=== PATIENT | female | born 1980 | race Two or more races ===

== ENCOUNTER 2016-11-27 20:50 | Emergency (ER) | payer OTHER ==
[2016-11-27] MEDS ORDERED: Fluorescein Sodium TOPICAL* 1 MG TEST ONE ×2 (20:57→20:58)
[2016-11-27] MEDS ORDERED: BSS OPTH.SOL* BTL ONE (20:57)
[2016-11-27] MEDS ORDERED: Tetracaine 0.5% OPTH.SOL 15ML* BTL ONE (20:59)
[2016-11-27 21:02] VITALS: BP 145/90
[2016-11-27] MEDS ORDERED: Erythromycin OPTH OINT* APPLIC OINT LEFT EYE ONE (21:32)
--- NOTE | 2016-11-27 21:39 | UC ---
Eye Complaint HPI - HPI Summary HPI Summary: 36 year old female with complaints of left eye pain and foreign body sensation. States she was carrying a glass bottle of orange juice in her groceries and dropped in on the sidewalk outside her home. She went outside to clean it up and something went into her eye. She has used eye drops to flush it and has rubbed it some without relief. vision 20/20 She does not wear glasses or contacts SHE REPORTS A HX OF ANXIETY. SHE HAS A LOT OF HOMEWORK DUE TOMORROW FOR [employer] AND DID NOT HAVE TIME FOR THIS INJURY. SHE STATES SHE IS FEELING VERY ANXIOUS. SHE DENIES ANY THOUGHTS OF HARMING HERSELF OR OTHERS - History of Current Complaint Chief Complaint: UCEye Stated Complaint: POSS GLASS IN EYE Time Seen by Provider: 11/27/16 21:00 Hx Obtained From: Patient Hx Last Menstrual Period: 11/17/16 ?: No Onset/Duration: Sudden Onset, Lasting Hours - 1, Still Present Timing: Constant Severity Initially: Moderate Severity Currently: Moderate Pain Scale Used: 0-10 Numeric - 8/10 upon arrival Character: Foreign Body Sensation Aggravating Factor(s): Light Alleviating Factor(s): Nothing Associated Signs And Symptoms: Positive: Photophobia, Drainage (Clear) - tearing. Negative: Vision Impairment Right, Vision Impairment Left, Swelling Related History: Foreign Body - Risk Factors Penetrating Injury Risk Factor: Negative Globe Rupture Risk Factors: Negative Acute Glaucoma Risk Factors: Negative Optic Artery Occlusion Risk Factors: Negative - Allergies/Home Medications Allergies/Adverse Reactions: Allergies Allergy/AdvReac Type Severity Reaction Status Date / Time Amoxicillin Allergy Unknown Verified 11/27/16 20:55 Reaction Details Clavulanic Acid Allergy Unknown Verified 11/27/16 20:55 [From Augmentin] Reaction Details Shellfish Allergy Allergy Anaphylatic Verified 11/27/16 20:55 Shock Sulfa Antibiotics Allergy Unknown Verified 11/27/16 20:55 Reaction Details Home Medications: Home Medications Gabapentin CAP(*) [Neurontin 100 mg CAP(*)] 1 cap TID 11/27/16 [History Confirmed 11/27/16] Thyroid [[place] Thyroid] 90 mg DAILY 11/27/16 [History Confirmed 11/27/16] PMH/Surg Hx/FS Hx/Imm Hx Previously Healthy: Yes Endocrine History Of: Reports: Diabetes - prediabetes, Thyroid Disease Psychological History Of: Reports: Anxiety, Depression - Surgical History Surgical History: Yes Surgery Procedure, Year, and Place: tonsillectomy, wisdom teeth removal, surgical removal of a glass foreign body from foot - Family History Known Family History: Positive: Other - : liver and renal failure, nonalcoholic cirrhosis, abdominal aneurism, - Social History Alcohol Use: Rare Substance Use Type: None Smoking Status (MU): Light Every Day Tobacco Smoker Amount Used/How Often: 1 cig/day Have You Smoked in the Last Year: Yes Cessation Counseling: Patient Advised to Stop - Immunization History Most Recent Influenza Vaccination: None Most Recent Tetanus Shot: Unk Most Recent Pneumonia Vaccination: None Review of Systems Constitutional: Negative Skin: Negative Eyes: Photophobia, Other - foreign body sensation left eye ENT: Negative Respiratory: Negative Cardiovascular: Negative Gastrointestinal: Negative Genitourinary: Negative Motor: Negative Neurovascular: Negative Musculoskeletal: Negative Neurological: Negative Psychological: Anxious - she reports she is having lots of anxiety. hx of anxiety. she has a lot of homework for [employer] tomorrow All Other Systems Reviewed And Are Negative: Yes Physical Exam Triage Information Reviewed: Yes Appearance: Well-Nourished, Pain Distress - holding left eye closed Vital Signs: Initial Vital Signs Temp 97.8 F 11/27/16 20:57 Pulse 83 11/27/16 20:57 Resp 18 11/27/16 20:57 BP 145/90 11/27/16 20:57 Pulse Ox 99 11/27/16 20:57 Vital Signs Reviewed: Yes Eyes: Positive: Conjunctiva Clear, Discharge - clear tears, Other: - PERRLA, GOOD OCULAR MOVEMENTS. NO OBVIOUS FOREIGN BODY NOTED ENT Exam: Normal ENT: Positive: Hearing grossly normal. Negative: Nasal congestion Respiratory: Positive: Lungs clear, Normal breath sounds Cardiovascular: Positive: RRR, No Murmur Musculoskeletal: Positive: Strength Intact, ROM Intact Neurological: Positive: Alert, Muscle Tone Normal Psychological: Positive: Age Appropriate Behavior - PLEASANT AND COOPERATIVE Skin: Negative: rashes, breakdown Eye Complaint Course/Dx - Course Course Of Treatment: PROPARICAINE 2 DROPS TO LEFT EYE = COMPLETE RELIEF OF PAIN. fluorescence STAIN TO LEFT EYE = 2 SMALL CORNEAL ABRASION AT 3 O'CLOCK. NO FOREIGN BODY NOTED. NORMAL SALINE FLUSH - Differential Dx/Diagnosis Differential Diagnosis/HQI/PQRI: Corneal Abrasion, Foreign Body Provider Diagnoses: CORNEAL ABRASION LEFT EYE. ANXIETY Discharge - Discharge Plan Condition: Stable Disposition: HOME Prescriptions: Erythromycin OPHTH.OINT* [Ilotycin OPHTH.OINT*] 1 applic LEFT EYE Q4H #1 tube Patient Education Materials: Corneal Abrasion (ED) Referrals: Fernando Dowling MD [Primary Care Provider] - Angelo Aj MD [Medical Doctor] - 1 Day (IF YOU ARE NOT FEELING MUCH BETTER TOMRORROW CALL FOR AN APPOINTMENT)
== END 2016-11-27 22:00 | disposition home or self-care (01) ==
LOC: UCEAST 20:50
DX: S05.02XA Injury of conjunctiva and corneal abrasion without foreign body, left eye, initial encounter (principal); X58.XXXA Exposure to other specified factors, initial encounter; Y93.89 Activity, other specified; Y92.89 Other specified places as the place of occurrence of the external cause; F41.9 Anxiety disorder, unspecified; Z55.1 Schooling unavailable and unattainable; Z88.2 Allergy status to sulfonamides; R73.03 Prediabetes; E07.9 Disorder of thyroid, unspecified; F17.210 Nicotine dependence, cigarettes, uncomplicated
CPT/HCPCS: 99213; A9270-GY; G0463

== ENCOUNTER 2018-01-23 18:33 | Emergency (ER) | payer OTHER ==
[2018-01-23 19:07] VITALS: BP 120/72
--- NOTE | 2018-01-23 19:19 | UC ---
Respiratory Complaint HPI - HPI Summary HPI Summary: 37 yo female with nasal d/c /facial pressure and post nasal drip x days no cough up yellow phlegm no fever chills upper teeth and gums hurt 19 wks - History of Current Complaint Chief Complaint: UCRespiratory Stated Complaint: COLD,ST,COUGH,19 WEEKS PREG Time Seen by Provider: 01/23/18 19:11 Hx Obtained From: Patient Hx Last Menstrual Period: 11/17/16 Onset/Duration: Gradual Onset, Lasting Days Timing: Constant Severity Initially: Mild Severity Currently: Moderate Pain Intensity: 3 Pain Scale Used: 0-10 Numeric Character: Cough: Productive Aggravating Factors: Nothing Alleviating Factors: Nothing Associated Signs And Symptoms: Positive: Chills, Nasal Congestion, Sinus Discomfort - Allergies/Home Medications Allergies/Adverse Reactions: Allergies Allergy/AdvReac Type Severity Reaction Status Date / Time amoxicillin Allergy Severe Hives Verified 01/23/18 19:10 clavulanic acid Allergy Severe Hives Verified 01/23/18 19:10 [From Augmentin] shellfish derived Allergy Severe anaphylaxis Verified 01/23/18 19:10 Sulfa (Sulfonamide Allergy Severe Hives, Verified 01/23/18 19:10 Antibiotics) difficulty breathing PMH/Surg Hx/FS Hx/Imm Hx Previously Healthy: Yes - Surgical History Surgical History: Yes Surgery Procedure, Year, and Place: tonsillectomy, wisdom teeth removal, surgical removal of a glass foreign body from foot - Family History Known Family History: Positive: Other - : liver and renal failure, nonalcoholic cirrhosis, abdominal aneurism, - Social History Alcohol Use: Rare Substance Use Type: None Smoking Status (MU): Light Every Day Tobacco Smoker Amount Used/How Often: 1 cig/day Have You Smoked in the Last Year: Yes - Immunization History Most Recent Influenza Vaccination: None Most Recent Tetanus Shot: Unk Most Recent Pneumonia Vaccination: None Review of Systems Constitutional: Chills, Fatigue Skin: Negative Eyes: Negative ENT: Dental Pain, Nasal Discharge, Sinus Congestion, Sinus Pain/Tenderness Respiratory: Negative Cardiovascular: Negative Gastrointestinal: Negative Genitourinary: Negative Motor: Negative Neurovascular: Negative Musculoskeletal: Negative Neurological: Negative Psychological: Negative Is Patient Immunocompromised?: No All Other Systems Reviewed And Are Negative: Yes Physical Exam Triage Information Reviewed: Yes Appearance: Well-Appearing, No Pain Distress, Well-Nourished Vital Signs: Initial Vital Signs Temp 96.8 F 01/23/18 19:02 Pulse 85 01/23/18 19:02 Resp 16 01/23/18 19:02 BP 120/72 01/23/18 19:02 Pulse Ox 100 01/23/18 19:02 Eyes: Positive: Conjunctiva Clear ENT: Positive: Nasal congestion, Nasal drainage, TMs normal, Sinus tenderness, Uvula midline. Negative: Tonsillar swelling, Tonsillar exudate, Muffled voice Neck: Positive: Supple, Nontender, No Lymphadenopathy Respiratory Exam: Normal Respiratory: Positive: Lungs clear, Normal breath sounds, No respiratory distress, No accessory muscle use Cardiovascular: Positive: RRR, No Murmur Abdomen Description: Positive: Nontender, No Organomegaly Musculoskeletal: Positive: ROM Intact, No Edema Neurological: Positive: Alert Psychological Exam: Normal Skin Exam: Normal UC Diagnostic Evaluation - Laboratory O2 Sat by Pulse Oximetry: 100 - normal/not hypoxic Respiratory Course/Dx - Differential Dx/Diagnosis Provider Diagnoses: acute sinusitis Discharge - Sign-Out/Discharge Documenting (check all that apply): Discharge/Admit/Transfer - Discharge Plan Condition: Stable Disposition: HOME Prescriptions: Azithromycin TAB* [Zithromax TAB*] 250 mg PO DAILY #6 tab Patient Education Materials: Sinusitis (ED) Referrals: Fernando Dowling MD [Primary Care Provider] - If Needed Additional Instructions: warm facial compresses saline nasal spray recheck for new or worsening symptoms - Billing Disposition and Condition Condition: STABLE Disposition: HOME
== END 2018-01-23 19:36 | disposition home or self-care (01) ==
LOC: UCEAST 18:33
DX: O26.892 Other specified pregnancy related conditions, second trimester (principal); J01.90 Acute sinusitis, unspecified; Z3A.19 19 weeks gestation of pregnancy; Z88.1 Allergy status to other antibiotic agents; Z88.0 Allergy status to penicillin; Z88.2 Allergy status to sulfonamides; F17.210 Nicotine dependence, cigarettes, uncomplicated
CPT/HCPCS: 99212; G0463

== ENCOUNTER 2019-06-22 08:22 | Emergency (ER) | payer OTHER ==
--- OUTSIDE RECORDS SUMMARY | 2019-06-22 08:28 | XMS REPORT | Continuity of Care Document ---
:[address] [facility] Services Address [address] [place] [address] Care Team Providers Name Role Phone Joceline Valdovinos MD Unavailable Unavailable Maryuri Rao Unavailable Unavailable Allergies, Adverse Reactions, Alerts Substance Reaction Status No information Medications Medication Instructions Dosage Effective Dates Status Comments (start - stop) prednisone 10 mg take 1 tablet by oral 10 MG - Active tablet route 2 times every day every day Problems Condition Effective Dates (start - stop) Clinical Status Comments No information Procedures Procedure Date OFFICE/OUTPATIENT VISIT, EST SPECIMEN HANDLING ROUTINE VENIPUNCTURE Results Test Name Date and Time Measure Units Reference Range Abnormal Flag Status Comments Panel Description: COMPREHENSIVE METABOLIC PANEL Final GLUCOSE 103 mg/dL 65-99 H Final 11:18:00 Fasting reference interval For someone without known diabetes, a glucose valuebetween 100 and 125 mg/dL is consistent withprediabetes and should be confirmed with afollow-up test.

UREA NITROGEN 9 mg/dL 7-25 N Final (BUN) 11:18:00 CREATININE 0.77 mg/dL 0.50-1.1 N Final 11:18:00 0 eGFR NON-AFR. 98 mL/min/1 > OR = N Final TUVALUAN 11:18:00 .73m2 60 eGFR 114 mL/min/1 > OR = N Final TUVALUAN 11:18:00 .73m2 60 BUN/CREATININE NOT (calc) 6-22 Final RATIO 11:18:00 APPLICABLE SODIUM 137 mmol/L 135-146 N Final 11:18:00 POTASSIUM 4.0 mmol/L 3.5-5.3 N Final 11:18:00 CHLORIDE 105 mmol/L 98-110 N Final 11:18:00 CARBON DIOXIDE 24 mmol/L 20-32 N Final 11:18:00 CALCIUM 9.5 mg/dL 8.6-10.2 N Final 11:18:00 PROTEIN, TOTAL 7.1 g/dL 6.1-8.1 N Final 11:18:00 ALBUMIN 4.4 g/dL 3.6-5.1 N Final 11:18:00 GLOBULIN 2.7 g/dL 1.9-3.7 N Final 11:18:00 (calc) ALBUMIN/GLOBULI 1.6 (calc) 1.0-2.5 N Final N RATIO 11:18:00 BILIRUBIN, 0.5 mg/dL 0.2-1.2 N Final TOTAL 11:18:00 ALKALINE 67 U/L 33-115 N Final PHOSPHATASE 11:18:00 AST 19 U/L 10-30 N Final 11:18:00 ALT 18 U/L 6-29 N Final 11:18:00 Panel Description: ANTINUCLEAR ANTIBODIES TITER AND PATTERN Final KAYODE PATTERN SPECKLED A Final Speckled pattern is 11:18:00 associated with mixed connectivetissue disease (MCTD), systemic lupus erythematosus(SLE), Sjogren's syndrome, dermatomyositis, andsystemic sclerosis/polymyositis overlap.

KAYODE TITER 1:320 titer H Final <content 11:18:00 ID='[id number]' xmlns='[email or web address]'> Reference Range <1:40 Negative 1:40-1:80 Low Antibody Level >1:80 Elevated Antibody Level

</content> Panel Description: TIER 1 Final DNA (DS) <1 IU/mL N Final <content ANTIBODY 11:18:00 ID='[id number]' xmlns='[email or web address]'> IU/mL Interpretation < or = 4 Negative 5-9 Indeterminate > or = 10 Positive

</content> SM ANTIBODY <1.0 AI <1.0 N Final 11:18:00 NEG NEG SM/FISH CULTURIST <1.0 AI <1.0 N Final ANTIBODY 11:18:00 NEG NEG FISH CULTURIST ANTIBODY <1.0 AI <1.0 N Final 11:18:00 NEG NEG CHROMATIN <1.0 AI <1.0 N Final (NUCLEOSOMAL) 11:18:00 NEG NEG ANTIBODY Panel Description: TIER 2 Final SJOGREN'S ANTIBODY (SS-A) 11:18:00 <1.0 NEG AI <1.0 NEG N Final SJOGREN'S ANTIBODY (SS-B) 11:18:00 <1.0 NEG AI <1.0 NEG N Final SCL-70 ANTIBODY 11:18:00 <1.0 NEG AI <1.0 NEG N Final JOHANNA-1 ANTIBODY 11:18:00 <1.0 NEG AI <1.0 NEG N Final Panel Description: TIER 3 Final CENTROMERE B <1.0 NEG AI <1.0 NEG N Final ANTIBODY 11:18:00 RIBOSOMAL P <1.0 NEG AI <1.0 NEG N Final [facility] does not ANTIBODY 11:18:00 rule out autoimmune diseasecharacterized by other autoantibody specificities suchas rheumatoid arthritis, autoimmune hepatitis, primarybiliary cholangitis, autoimmune thyroiditis, [place]'sdisease, pernicious anemia, autoimmune neuropathies,vasculitis, celiac disease and bullous disease.Please contact your local [facility] laboratoryif you are interested in additional testing.

Panel Description: INTERPRETATION Final INTERPRETATION 11:18:00 Final All three negative tiers indicate the absence of detectable antibodies to component analytes consistingof double stranded DNA (dsDNA), chromatin, ribonucleoprotein (FISH CULTURIST), Encinas/FISH CULTURIST (Sm/FISH CULTURIST), Encinas (Sm), SS-A, SS-B, Johanna-1, Scl-70, centromere B andribosomal P. A negative result should be interpretedin the context of the clinical and laboratory findings.

Panel Description: TSH W/REFLEX TO FT4 Final TSH W/REFLEX TO 11:18:00 1.55 mIU/L N Final Reference Range FT4 > or = 20 Years 0.40-4.50 Ranges First trimester 0.26-2.66 Second trimester 0.55-2.73 Third trimester 0.43-2.91

Panel Description: SED RATE BY MODIFIED WESTERGREN Final SED RATE BY MODIFIED WESTERGREN 11:18:00 6 mm/h < OR = 20 N Final Panel Description: URINALYSIS, COMPLETE Final COLOR 11:18:00 DARK YELLOW YELLOW N Final APPEARANCE 11:18:00 CLEAR CLEAR N Final SPECIFIC GRAVITY 11:18:00 1.025 1.001-1.035 N Final PH 11:18:00 6.0 5.0-8.0 N Final GLUCOSE 11:18:00 NEGATIVE NEGATIVE N Final BILIRUBIN 11:18:00 NEGATIVE NEGATIVE N Final KETONES 11:18:00 NEGATIVE NEGATIVE N Final OCCULT BLOOD 11:18:00 NEGATIVE NEGATIVE N Final PROTEIN 11:18:00 NEGATIVE NEGATIVE N Final NITRITE 11:18:00 NEGATIVE NEGATIVE N Final LEUKOCYTE ESTERASE 11:18:00 NEGATIVE NEGATIVE N Final WBC 11:18:00 NONE SEEN /HPF < OR = 5 N Final RBC 11:18:00 0-2 /HPF < OR = 2 N Final SQUAMOUS EPITHELIAL CELLS 11:18:00 0-5 /HPF < OR = 5 Final BACTERIA 11:18:00 NONE SEEN /HPF NONE SEEN N Final HYALINE CAST 11:18:00 NONE SEEN /LPF NONE SEEN N Final Panel Description: CBC (INCLUDES DIFF/PLT) Final WHITE BLOOD CELL COUNT 11:18:00 11.4 Thousand/uL 3.8-10.8 H Final RED BLOOD CELL COUNT 11:18:00 5.03 Million/uL 3.80-5.10 N Final HEMOGLOBIN 11:18:00 13.7 g/dL 11.7-15.5 N Final HEMATOCRIT 11:18:00 41.9 % 35.0-45.0 N Final MCV 11:18:00 83.3 fL 80.0-100.0 N Final MCH 11:18:00 27.2 pg 27.0-33.0 N Final MCHC 11:18:00 32.7 g/dL 32.0-36.0 N Final RDW 11:18:00 14.5 % 11.0-15.0 N Final PLATELET COUNT 11:18:00 393 Thousand/uL 140-400 N Final MPV 11:18:00 9.6 fL 7.5-12.5 N Final ABSOLUTE NEUTROPHILS 11:18:00 6601 cells/uL 3154-6946 N Final ABSOLUTE LYMPHOCYTES 11:18:00 2998 cells/uL 850-3900 N Final ABSOLUTE MONOCYTES 11:18:00 638 cells/uL 200-950 N Final ABSOLUTE EOSINOPHILS 11:18:00 1060 cells/uL 15-500 H Final ABSOLUTE BASOPHILS 11:18:00 103 cells/uL 0-200 N Final NEUTROPHILS 11:18:00 57.9 % 38-80 N Final LYMPHOCYTES 11:18:00 26.3 % 15-49 N Final MONOCYTES 11:18:00 5.6 % 0-13 N Final EOSINOPHILS 11:18:00 9.3 % 0-8 H Final BASOPHILS 11:18:00 0.9 % 0-2 N Final Panel Description: DNA (DS) ANTIBODY Final DNA (DS) <1 IU/mL N Final <content ANTIBODY 11:18:00 ID='[id number]' xmlns='[email or web address]'> IU/mL Interpretation < or = 4 Negative 5-9 Indeterminate > or = 10 Positive

</content> Panel Description: C-REACTIVE PROTEIN Final C-REACTIVE PROTEIN 11:18:00 9.6 mg/L <8.0 H Final Panel Description: SM AND SM/FISH CULTURIST ANTIBODIES Final SM ANTIBODY 11:18:00 <1.0 NEG AI <1.0 NEG N Final SM/FISH CULTURIST ANTIBODY 11:18:00 <1.0 NEG AI <1.0 NEG N Final Panel Description: SJOGREN'S ANTIBODIES (SS-A,SS-B) Final SJOGREN'S ANTIBODY (SS-A) 11:18:00 <1.0 NEG AI <1.0 NEG N Final SJOGREN'S ANTIBODY (SS-B) 11:18:00 <1.0 NEG AI <1.0 NEG N Final Panel Description: KAYODE SCR,IFA W/REFL TITER/ PATTERN/MPX AB CASCADE Final KAYODE POSITIVE NEGATIVE A Final KAYODE IFA is a first line screen for detecting SCREEN, 11:18:00 thepresence of up to approximately 150 IFA autoantibodies invarious autoimmune diseases. A positive KAYODE IFA resultis suggestive of autoimmune disease and reflexes to titer, pattern and the 3 tiered Multiplex 11 AntibodyCascade. Testing in [facility] stops at the firstpositive result, and does not preclude additionalpositive results. Further laboratory testing may beconsidered if clinically indicated. Visit Physician FAQs for interpretation of allantibodies in the [facility], prevalence, and associationwith diseases at [email or web address]

Advance Directives Directive Yes / No Effective Date File Name No information Encounters Encounter Practice Location Reason(s) Diagnoses Date Provider Providers Description For Visit Copied on Encounter OFFICE/OUTPAT [place] Abnormal SLE (systemic [employer] IENT VISIT, [facility] Lab Study lupus [facility]. [address] Provider: [facility] (chief erythematosus [address] [employer], complaint) related Jalen Myrick, [address]) [place], [address] [id number], [place], tel:[phone] Yamilet Myrick, [address], [place], [place], [id number]. [id number], tel:[phone] Family History Family Member Diagnosis Age At Onset Mother ovarian cyst Maternal grandmother Hypothyroidism Maternal aunts Hypothyroidism Immunizations Vaccine Date Status Comments No information Payers Payer name Insurance type Covered libertarian ID Authorization(s) Alexa [facility] [id number] Medicaid [place] [id number] Social History Type Description Quantity Date Captured Comments Alcohol Use Details No Caffeine Use Details coffee 3 cups per day Tobacco Use Status Ex-cigarette smoker Smoking Status Former smoker Smoking Tobacco Use Cigarette: Age Started: 22, Age Stopped: 38, Years Used 17 Cigarette: No Details Available Details Sex Female Vital Signs Date / Height Weight BMI Pulse Blood Temperature Respiratory Body Head BMI Pulse Inhaled Time: Rate Pressure Rate Surface Circumference percentile Ox Ox Area 69.50 224.00 32.6 88 129/88 98.20 F 18 /min 2.23 -2019 in lbs 0 /min mm[Hg] meter(2) 9:45 kg/m AM eter (2) Chief Complaint And Reason For Visit Most recent encounter only, dated '04/30/2019 09:40'. Abnormal Lab Study (chief complaint). Description: PATIENT IS HERE FOR HER INITIAL RHEUMATOLOGICAL CONSULTATION SHE HAS A POSITIVE KAYODE AT A TITRE OF 1: 320.SHE IS ALSO C/O SWELLING AND STIFFINESS OF HER HANDS .SHE HAS FATIGUE .SHE HAS A H/O FIBROMYALGIA . ALSO WAS DIAGNOSED WITH PTSD AND COGNITIVE AMNESIA FROM THAT SHE DENIES MUCOSAL ULCERS, NO RAYNAUDS , NO PLEURITIC CHEST PAIN SHE C/O FATIGUE Reason For Referral Reason For Referral No information Plan Of Treatment Date Type Action Status No information History Of Present Illness Encounter Date Complaint History Of Present Illness Abnormal Lab Study PATIENT IS HERE FOR HER INITIAL RHEUMATOLOGICAL CONSULTATION SHE HAS A POSITIVE KAYODE AT A TITRE OF 1: 320.SHE IS ALSO C/O SWELLING AND STIFFINESS OF HER HANDS .SHE HAS FATIGUE .SHE HAS A H/O FIBROMYALGIA . ALSO WAS DIAGNOSED WITH PTSD AND COGNITIVE AMNESIA FROM THAT SHE DENIES MUCOSAL ULCERS, NO RAYNAUDS , NO PLEURITIC CHEST PAIN SHE C/O FATIGUE Functional Status Date Functional Assessment No information Medications Administered Medication Instructions Dosage Effective Dates (start - stop) Status Comments No information Instructions Date Instruction Additional Information WILL DO THE FULL IMMUNOLOGICAL BLOOD Related to SLE (systemic lupus WORK WILL CHALLENGE HER WITH A LOW erythematosus related syndrome) DOSE OF PREDNISONE WILL HAVE HER F/U IN 2-3 WEEKS Assessments Type Assessment Date assessment SLE (systemic lupus erythematosus related syndrome) impression SHE CLINICALLY SEEMS TO HAVE A MILD FORM OF SLE Goals Health Concern Goal Type Priority Status Date No information Medical Equipment Description Device [place] Device Identifier Effective Dates (start - stop ) Status No information Mental Status Date Cognitive Assessment Orientation - Oriented to time, place, person, situation. Health Concerns Observation Date No information Concern Status Date No information
--- OUTSIDE RECORDS SUMMARY | 2019-06-22 08:28 | XMS REPORT | Continuity of Care Document ---
:[address] [facility] Address [address] [place] [address] Care Team Providers Name Role Phone Fernando Dowling MD Unavailable Unavailable Allergies, Adverse Reactions, Alerts Substance Reaction Status No information Medications Medication Instructions Dosage Effective Dates Status Comments (start - stop) Xanax 0.25 mg take 1 tablet by 0.25 MG - No Longer MDD of 1 tab. tablet oral route every Active day as needed Dyer 5 mg-325 mg take 1 tablet by - No Longer MDD of 2 tabs. tablet oral route every Active 12 hours as needed for pain for fjbromyalgia as needed Problems Condition Effective Dates (start - stop) Clinical Status Comments No information Procedures Procedure Date No information Results Test Name Date and Time Measure Units Reference Range Abnormal Flag Status Comments No information Advance Directives Directive Yes / No Effective Date File Name No information Encounters Encounter Practice Location Reason(s) Diagnoses Date Provider Providers Description For Visit Copied on Encounter Yamilet [place] [facility] -[address] Fernando. [place] [address] Services, [facility] [address] Yamilet [address], [place], [address], . [place], tel:[phone] Yamilet, [address] [place], [id number], Family History Family Member Diagnosis Age At Onset Mother ovarian cyst Maternal grandmother Hypothyroidism Maternal aunts Hypothyroidism Immunizations Vaccine Date Status Comments No information Payers Payer name Insurance type Covered green party ID Authorization(s) Alexa [facility] [id number] Medicaid MC [id number] Social History Type Description Quantity Date Captured Comments Alcohol Use Details Unknown Caffeine Use Details Unknown Tobacco Use Status Unknown Smoking Status Unknown Sex Female Vital Signs Date / Height Weight BMI Pulse Blood Temperature Respiratory Body Head BMI Pulse Inhaled Time: Rate Pressure Rate Surface Circumference percentile Ox Ox Area No information Chief Complaint And Reason For Visit No information Reason For Referral Reason For Referral No information Plan Of Treatment Date Type Action Status No information History Of Present Illness Encounter Date Complaint History Of Present Illness No information Functional Status Date Functional Assessment No information Medications Administered Medication Instructions Dosage Effective Dates (start - stop) Status Comments No information Instructions Date Instruction Additional Information No information Assessments Type Assessment Date No information Goals Health Concern Goal Type Priority Status Date No information Medical Equipment Description Device [place] Device Identifier Effective Dates (start - stop ) Status No information Mental Status Date Cognitive Assessment No information Health Concerns Observation Date No information Concern Status Date No information
--- OUTSIDE RECORDS SUMMARY | 2019-06-22 08:28 | XMS REPORT | Continuity of Care Document ---
:[address] [facility] Address [address] [facility] [place] [address] Care Team Providers Name Role Phone Fernando Dowling MD Unavailable Unavailable Allergies, Adverse Reactions, Alerts Substance Reaction Status No information Medications Medication Instructions Dosage Effective Dates (start - stop) Status Comments No information Problems Condition Effective Dates (start - stop) Clinical Status Comments No information Procedures Procedure Date No information Results Test Name Date and Time Measure Units Reference Range Abnormal Flag Status Comments No information Advance Directives Directive Yes / No Effective Date File Name No information Encounters Encounter Practice Location Reason(s) Diagnoses Date Provider Providers Description For Visit Copied on Encounter Yamilet Woodard [facility] -[facility] Fernando. [facility] [address] [address] [facility] [place], [address], . Ramez, tel:[phone] Kash[place], [address] [place], [phone], Family History Family Member Diagnosis Age At Onset Mother ovarian cyst Maternal grandmother Hypothyroidism Maternal aunts Hypothyroidism Immunizations Vaccine Date Status Comments No information Payers Payer name Insurance type Covered constitution party ID Authorization(s) [id number] Medicaid MC [id number] Social History Type Description Quantity Date Captured [...] Date No information Medical Equipment Description Device Rosine Device Identifier Effective Dates (start - stop ) Status No information Mental Status Date Cognitive Assessment No information Health Concerns Observation Date No information Concern Status Date No information
--- OUTSIDE RECORDS SUMMARY | 2019-06-22 08:28 | XMS REPORT | Continuity of Care Document ---
:1980 Author Organization [facility] Address [address] [place] [address] Care Team Providers Name Role Phone Arnold Johnson MD Unavailable Unavailable Allergies, Adverse Reactions, Alerts Substance Reaction Status No information Medications Medication Instructions Dosage Effective Dates Status Comments (start - stop) Xanax 0.25 mg take 1 tablet by 0.25 MG - Active MDD of 1 tab. tablet oral route every day as needed [place] 5 mg-325 mg take 1 tablet by - Active MDD of 2 tabs. tablet oral route every 12 hours as needed for pain for [...] For Visit Copied on Encounter Yamilet Woodard [facility] -Anna Barrett. [address] [place] [address], Yamilet Myrick, [address] [place], [id number], [place]. Catcher tel:[phone] R[place], [address] [place], [phone], Family History Family Member Diagnosis Age At Onset Mother ovarian cyst Maternal grandmother Hypothyroidism Maternal aunts Hypothyroidism Immunizations Vaccine Date Status Comments No information Payers Payer name Insurance type Covered libertarian ID Authorization(s) Alexa Rodriguez [id number] Medicaid MC [id number] Social History Type Description Quantity Date Captured Comments Sex Female Vital Signs Date / Height [...] Date No information Medical Equipment Description Device [place] Device Identifier Effective Dates (start - stop ) Status No information Mental Status Date Cognitive Assessment No information Health Concerns Observation Date No information Concern Status Date No information
--- OUTSIDE RECORDS SUMMARY | 2019-06-22 08:29 | XMS REPORT | Continuity of Care Document ---
:1980 Author Organization [facility] Address [address] [facility] [place] [address] Care Team Providers Name Role Phone Fernando [...] For Visit Copied on Encounter Yamilet Woodard [facility] -2018 Fernando. [facility] [facility] [address] [facility] [address], . R[place]z, tel:[phone] Yamilet, [address] [place], [phone], Family History Family Member Diagnosis Age At Onset Mother ovarian cyst Maternal grandmother Hypothyroidism Maternal aunts Hypothyroidism Immunizations Vaccine Date Status Comments No information Payers Payer name Insurance type Covered democrat ID Authorization(s) D Yuliyaaqkeren [id number] Medicaid [id number] Social History Type Description Quantity Date Captured [...] Date No information Medical Equipment Description Device [place] Device Identifier Effective Dates (start - stop ) Status No information Mental Status Date Cognitive Assessment No information Health Concerns Observation Date No information Concern Status Date No information
--- OUTSIDE RECORDS SUMMARY | 2019-06-22 08:29 | XMS REPORT | Continuity of Care Document ---
:1980 Author Organization [facility] Address [address] [place] [address] Care Team Providers Name Role Phone oJceline Valdovinos MD Unavailable Unavailable Allergies, Adverse Reactions, Alerts [...] For Visit Copied on Encounter Yamilet Woodard [facility] -2018 Joceline. [address] [facility] [place] Yamilet, [address] [place], [address], . Catcher tel:[phone] Ramez, [address] [place], [place], [phone], Family History Family Member Diagnosis Age At Onset Mother ovarian cyst Maternal grandmother Hypothyroidism Maternal aunts Hypothyroidism Immunizations Vaccine Date Status Comments No information Payers Payer name Insurance type Covered republican ID Authorization(s) Alexa [facility] [id number] Medicaid MC [id number] Social History Type Description Quantity Date Captured [...] Date No information Medical Equipment Description Device Marquez Device Identifier Effective Dates (start - stop ) Status No information Mental Status Date Cognitive Assessment No information Health Concerns Observation Date No information Concern Status Date No information
--- OUTSIDE RECORDS SUMMARY | 2019-06-22 08:29 | XMS REPORT | Continuity of Care Document ---
:1980 Author Organization [facility] Address [address] [place] [address] Care Team Providers Name Role Phone Fernando [...] For Visit Copied on Encounter Yamilet Woodard [facility] KAYODE -2018 Fernando. [facility] ([employer] [address] Services, r [facility] [address] antibody) Yam[place]t [place], [place], [address], [place]. [place], tel:[phone] Yamilet, [address] [place], [phone], Family History Family Member Diagnosis Age At Onset Mother ovarian cyst Maternal grandmother Hypothyroidism Maternal aunts Hypothyroidism Immunizations Vaccine Date Status Comments No information Payers Payer name Insurance type Covered green party ID Authorization(s) M Aetna CI [id number] [facility] [id number] Medicaid MC [id number] Social History Type Description Quantity Date Captured [...] Information No information Assessments Type Assessment Date assessment Positive KAYODE (antinuclear antibody) Goals Health Concern Goal Type Priority Status Date No information Medical Equipment Description Device [place] Device Identifier Effective Dates (start - stop ) Status No information Mental Status Date Cognitive Assessment No information Health Concerns Observation Date No information Concern Status Date No information
--- OUTSIDE RECORDS SUMMARY | 2019-06-22 08:29 | XMS REPORT | Continuity of Care Document ---
:1980 Author Organization [facility] Address [address] [place] [place] [address] Care Team Providers Name Role Phone Arnold [...] For Visit Copied on Encounter Yamilet Woodard SLE (systemic [facility] lupus 2-201 Arnold. Health Medical erythematosus [address] [facility] Services, related [address] syndrome) [place], [place], Catcher [address], . [place], tel:[phone] Yamilet, [address] [place], [phone], Family History Family Member Diagnosis Age At Onset Mother ovarian cyst Maternal grandmother Hypothyroidism Maternal aunts Hypothyroidism Immunizations Vaccine Date Status Comments No information Payers Payer name Insurance type Covered republican ID Authorization(s) Alexa [facility] [id number] Medicaid MC [id number] Social History Type Description Quantity Date Captured [...] Plan Of Treatment Date Type Action Status Referral Referred To: ordered Dr. Encinas Ordered: Referrals: Purchasing Intern. Dr. Encinas. Evaluate and treat Appointment date/timeframe: 05/19/2019 History Of Present Illness Encounter Date Complaint History Of Present Illness No information Functional Status Date Functional Assessment No information Medications Administered Medication Instructions Dosage Effective Dates (start - stop) Status Comments No information Instructions Date Instruction Additional Information No information Assessments Type Assessment Date assessment SLE (systemic lupus erythematosus related syndrome) Goals Health Concern Goal Type Priority Status Date No information Medical Equipment Description Device [place] Device Identifier Effective Dates (start - stop ) Status No information Mental Status Date Cognitive Assessment No information Health Concerns Observation Date No information Concern Status Date No information
--- OUTSIDE RECORDS SUMMARY | 2019-06-22 08:29 | XMS REPORT | Continuity of Care Document ---
:1980 Author Organization [facility] Address [address] [facility] [place] [address] Care Team Providers Name Role Phone Fernando [...] For Visit Copied on Encounter Yamilet Woodard [facility] -2018 Fernando. [facility] [address] [facility] [address] [facility], . Ramez, tel:[phone] Yamilet, [address] [place], [phone], Family History Family Member Diagnosis Age At Onset Mother ovarian cyst Maternal grandmother Hypothyroidism Maternal aunts Hypothyroidism Immunizations Vaccine Date Status Comments No information Payers Payer name Insurance type Covered green party ID Authorization(s) Alexa [place] CI [id number] [facility] [id number] Medicaid MC [id number] Social History Type Description Quantity Date Captured [...] Date No information Medical Equipment Description Device [place] Device Identifier Effective Dates (start - stop ) Status No information Mental Status Date Cognitive Assessment No information Health Concerns Observation Date No information Concern Status Date No information
--- OUTSIDE RECORDS SUMMARY | 2019-06-22 08:29 | XMS REPORT | Continuity of Care Document ---
:1980 Author Organization [facility] Address [address] [place] [address] Care Team Providers Name Role Phone Fernando Dowling MD Unavailable Unavailable Maryuri Rao Unavailable Unavailable Allergies, Adverse Reactions, Alerts Substance Reaction Status No information Medications Medication Instructions Dosage Effective Dates Status Comments (start - stop) EpiPen 0.3 mg/0.3 mL inject 0.3 milliliter 0.3 MG - Active injection, by intramuscular route auto-injector once as needed for anaphylaxis Problems Condition Effective Dates (start - stop) Clinical Status Comments No information Procedures Procedure Date VISUAL ACUITY SCREEN PREV VISIT, EST, AGE 18-39 OFFICE/OUTPATIENT VISIT, EST Results Test Name Date and Time Measure Units Reference Range Abnormal Flag Status Comments Panel Description: LIPID PANEL, STANDARD Final CHOLESTEROL, TOTAL 170 mg/dL <200 N Final 10:24:00 HDL CHOLESTEROL 59 mg/dL >50 N Final 10:24:00 TRIGLYCERIDES 72 mg/dL <150 N Final 10:24:00 LDL-CHOLESTEROL 95 mg/dL (calc) N Final <content 10:24:00 ID='[email or web address]' xmlns='[email or web address] [email or web address]'>Reference range: <100 Desirable range <100 mg/dL for primary prevention; <70 mg/dL for patients with CHD or diabetic patients with > or = 2 CHD risk factors. LDL-C is now calculated using the Hema-Flanagan calculation, which is a validated novel method providing better accuracy than the Friedewald equation in the estimation of LDL-C. Hema CRAMER et al. BONNIE. 2013;310(44): 8688-7344 (http://education. [employer].c om/faq/RSS253)<br/ >
</content> CHOL/HDLC RATIO 2.9 (calc) <5.0 N Final 10:24:00 NON HDL CHOLESTEROL 111 mg/dL (calc) <130 N Final For patients with 10:24:00 diabetes plus 1 major ASCVD risk factor, treating to a non-HDL-C goal of <100 mg/dL (LDL-C of <70 mg/dL) is considered a therapeutic option.

Panel Description: T4, FREE Final T4, FREE 10:24:00 0.7 ng/dL 0.8-1.8 L Final Panel Description: TSH Final TSH 10:24:00 1.20 mIU/L N Final Reference Range > or = 20 Years 0.40-4.50 Ranges First trimester 0.26-2.66 Second trimester 0.55-2.73 Third trimester 0.43-2.91

Panel Description: COMPREHENSIVE METABOLIC PANEL Final GLUCOSE 94 mg/dL 65-99 N Final 10:24:00 Fasting reference interval

UREA NITROGEN 10 mg/dL 7-25 N Final (BUN) 10:24:00 CREATININE 0.72 mg/dL 0.50-1.10 N Final 10:24:00 eGFR NON-AFR. 106 mL/min/1. > OR = 60 N Final [place]ER 10:24:00 73m2 eGFR 123 mL/min/1. > OR = 60 N Final [place] 10:24:00 73m2 BUN/CREATININE NOT APPLICABLE (calc) 03-15 Final RATIO 10:24:00 SODIUM 140 mmol/L 135-146 N Final 10:24:00 POTASSIUM 4.2 mmol/L 3.5-5.3 N Final 10:24:00 CHLORIDE 107 mmol/L 98-110 N Final 10:24:00 CARBON DIOXIDE 26 mmol/L 20-32 N Final 10:24:00 CALCIUM 9.3 mg/dL 8.6-10.2 N Final 10:24:00 PROTEIN, TOTAL 7.0 g/dL 6.1-8.1 N Final 10:24:00 ALBUMIN 4.4 g/dL 3.6-5.1 N Final 10:24:00 GLOBULIN 2.6 g/dL 1.9-3.7 N Final 10:24:00 (calc) ALBUMIN/GLOBULIN 1.7 (calc) 1.0-2.5 N Final RATIO 10:24:00 BILIRUBIN, TOTAL 0.5 mg/dL 0.2-1.2 N Final 10:24:00 ALKALINE 63 U/L 33-115 N Final PHOSPHATASE 10:24:00 AST 22 U/L 10-30 N Final 10:24:00 ALT 18 U/L 6-29 N Final 10:24:00 Panel Description: SED RATE BY MODIFIED WESTERGREN Final SED RATE BY MODIFIED BRIANERGREN 10:24:00 6 mm/h < OR = 20 N Final Panel Description: CBC (INCLUDES DIFF/PLT) Final WHITE BLOOD CELL COUNT 10:24:00 10.1 Thousand/uL 3.8-10.8 N Final RED BLOOD CELL COUNT 10:24:00 4.89 Million/uL 3.80-5.10 N Final HEMOGLOBIN 10:24:00 13.6 g/dL 11.7-15.5 N Final HEMATOCRIT 10:24:00 40.9 % 35.0-45.0 N Final MCV 10:24:00 83.6 fL 80.0-100.0 N Final MCH 10:24:00 27.8 pg 27.0-33.0 N Final MCHC 10:24:00 33.3 g/dL 32.0-36.0 N Final RDW 10:24:00 14.4 % 11.0-15.0 N Final PLATELET COUNT 10:24:00 386 Thousand/uL 140-400 N Final MPV 10:24:00 9.1 fL 7.5-12.5 N Final ABSOLUTE NEUTROPHILS 10:24:00 6222 cells/uL 9628-3111 N Final ABSOLUTE LYMPHOCYTES 10:24:00 2020 cells/uL 850-3900 N Final ABSOLUTE MONOCYTES 10:24:00 697 cells/uL 200-950 N Final ABSOLUTE EOSINOPHILS 10:24:00 1091 cells/uL 15-500 H Final ABSOLUTE BASOPHILS 10:24:00 71 cells/uL 0-200 N Final NEUTROPHILS 10:24:00 61.6 % 38-80 N Final LYMPHOCYTES 10:24:00 20.0 % 15-49 N Final MONOCYTES 10:24:00 6.9 % 0-13 N Final EOSINOPHILS 10:24:00 10.8 % 0-8 H Final BASOPHILS 10:24:00 0.7 % 0-2 N Final Panel Description: KAYODE SCREEN, IFA, W/REFL TITER AND PATTERN Final KAYODE POSITIVE NEGATIVE A Final KAYODE IFA is a first line screen for detecting SCREEN, 10:24:00 thepresence of up to approximately 150 IFA autoantibodies invarious autoimmune diseases. A positive KAYODE IFA resultis suggestive of autoimmune disease and reflexes totiter and pattern. Further laboratory testing may beconsidered if clinically indicated. Visit Physician FAQs for interpretation of allantibodies in the [place], prevalence, and associationwith diseases at http://education.netFactor.Kairos4/faq/FXB610

Panel Description: ANTINUCLEAR ANTIBODIES TITER AND PATTERN Final KAYODE PATTERN SPECKLED A Final Speckled pattern is 10:24:00 associated with mixed connectivetissue disease (MCTD), systemic lupus erythematosus(SLE), Sjogren's syndrome, dermatomyositis, andsystemic sclerosis/polymyositis overlap.

KAYODE TITER 1:320 titer H Final <content 10:24:00 ID='[id number]' xmlns='[email or web address]'> Reference Range <1:40 Negative 1:40-1:80 Low Antibody Level >1:80 Elevated Antibody Level

</content> Panel Description: RHEUMATOID FACTOR Final RHEUMATOID FACTOR 10:24:00 <14 IU/mL <14 N Final Panel Description: C-REACTIVE PROTEIN Final C-REACTIVE PROTEIN 10:24:00 8.6 mg/L <8.0 H Final Panel Description: CYCLIC CITRULLINATED PEPTIDE (CCP) AB (IGG) Final CYCLIC <16 UNITS N Final <content ID='[id number]' CITRULLINATED 10:24:00 xmlns='[email or web address]'>Reference PEPTIDE (CCP) AB RangeNegative: (IGG) <20Weak Positive: 20-39Moderate Positive: 40-59Strong Positive: >59

</content> Panel Description: URINALYSIS, AUTO, W/O SCOPE Final Bilirubin 09:19:08 NEG mg/DL 0.4-0.8 mg/dL Final Blood 09:19:08 MOD mg/dL 0.015-0.062 mg/dL Final Clarity 09:19:08 CLEAR Final Color 09:19:08 YELLOW Final Glucose 09:19:08 NEG mg/dL 75-125 mg/dL Final Ketones 09:19:08 NEG Final Leukocytes 09:19:08 NEG 5-15 wbc/hpf Final Nitrite 09:19:08 NEG mg/dL 0.06-0.1 mg/dL Final PH 09:19:08 6.0 4.6-8.0 Final Protein 09:19:08 NEG mg/dL 15-13 mg/dL Final Specific [place] 09:19:08 1.025 1.001-1.035 Final Urobilinogen 09:19:08 0.2 mg/dL <1.0 mg/dL Final Advance Directives Directive Yes / No Effective Date File Name Other Directive No 03/04/2018 N/A WARNING:The information contained in this section is historical and is provided for information onlyand does not constitute a legal document or any assurance that the information is still accurate. Please verify the information with the schmidt of the legal document before using it for clinical purposes. Encounters Encounter Practice Location Reason(s) Diagnoses Date Provider Providers Description For Visit Copied on Encounter PREV VISIT, [place] [facility]tr for [employer] EST, AGE Nation Nation exam (chief general adult [address]. Provider: 18-39 Health Medical complaint)C medical exam [address] [facility], hronic w/o abnormal [facility] [place], [address] Conditions findingsFibromy [place], [address] (chief algiaOther [place], [place], Catcher Catcher complaint) specified [address], [place]. [place], hypothyroidismP tel:[phone] [place], [place], [place], olyosteoarthrit [address] [phone]. [place], is, tel:[phone] unspecifiedObes [id number] , [place] ity, unspecifiedOthe r specified depressive episodesPost-tr aumatic stress disorder, chronicAnxiety disorder, unspecifiedNico gail dependence, cigarettes, uncomplicatedFi brocystic breast disease (FCBD) in female, unspecified laterality Family History Family Member Diagnosis Age At Onset Mother ovarian cyst Maternal grandmother Hypothyroidism Maternal aunts Hypothyroidism Immunizations Vaccine Date Status Comments No information Payers Payer name Insurance type Covered republican ID Authorization(s) Alexa Baez [id number] [facility] [id number] Medicaid MC [id number] Social History Type Description Quantity Date Captured Comments Alcohol Use Details No Caffeine Use Details coffee 3 cups per day Tobacco Use Status Cigarette smoker Smoking Status Current some day smoker Smoking Tobacco Use Cigarette: Age Started: 22, Age Stopped: 38, Years Used 17 Cigarette: No Details Available Details Sex Female Vital Signs Date / Height Weight BMI Pulse Blood Temperature Respiratory Body Head BMI Pulse Inhaled Time: Rate Pressure Rate Surface Circumference percentile Ox Ox Area 69.50 225.00 32.7 85 121/77 18 /min -2018 in lbs 5 /min mm[Hg] 9:20 kg/m AM eter (2) Chief Complaint And Reason For Visit Most recent encounter only, dated '04/18/2019 09:00'. preventive exam ( chief complaint)Chronic Conditions (chief complaint). Description: *See Chronic Conditions HPI Reason For Referral Reason For Referral No information Plan Of Treatment Date Type Action Status Goal Tobacco cessation counseling completed Referral Ordered: ordered Provider Relations Coordinator (related to Encntr for general adult medical exam w/o abnormal findings) Referral Ordered: ordered Referrals: Provider Relations Coordinator. Evaluate and treat Referral Ordered: ordered ULTRASOUND BREAST COMPLETE Bilateral Appointment date/timeframe: 04/18/2019 History Of Present Illness Encounter Date Complaint History Of Present Illness Chronic Conditions *See Chronic Conditions HPI preventive exam preventive exam (comments) Pt. is here today with above complaint. She is doing ok and is trying to stay active an eat a balanced diet. She will seeing Dr. Garcia of [facility] for her pap and pelvic exam next week. She does complain of fibrocystic changes in her lower breasts, left worse than right and this area is painful at times. Denies any nipple discharge or any other skin changes. Functional Status Date Functional Assessment No information Medications Administered Medication Instructions Dosage Effective Dates (start - stop) Status Comments No information Instructions Date Instruction Additional Information 1. Check bilateral breast US. 2. Related to Fibrocystic breast disease Start vitamin E 400 IU po qday. (FCBD) in female, unspecified laterality 1. Monitor. 2. She does BH for Related to Post-traumatic stress counseling at times. disorder, chronic 1. Monitor. 2. She wants to consider Related to Other specified depressive starting and wants to think about episodes this. 1. Diet and exercise. 2. Monitor Related to Obesity, unspecified caloric intake. 3. Continue with Adipex 37.5 mg po qday. 1. ROM exercises. 2. As above. Related to Polyosteoarthritis, unspecified 1. Check free T4 and TSH today. 2. Related to Other specified Continue with [place] Thyroid 30 mg 3 hypothyroidism tabs po qday. 1. ROM exercises. 2. Continue with Related to Fibromyalgia [place] 5/325 one tab po q12 hrs prn. 3.Check ESR, CRP, RF, anti CCP and KAYODE today. 4. Monitor. 5. Medication safety agreement updated today. 6. Check urine drug screen. 7. Controlled Substance Information. I advised the patient previously and today regarding treatment with the above controlled substances and/or narcotic. The patient was informed of the benefits, risks and alternatives of the narcotic. The risks discussed include but are not limited to physical and/or psychological dependence, tolerance of the medication, drowsiness, sleepiness, balance/coordination problems, confusion, allergic reaction, or any other abnormal symptoms. The patient was advised and agreed to use the medication only as prescribed and not to drive or operate heavy equipment or machinery. The patient understood and consented to both narcotic/opiate regimen and agreed to sign and comply with all of the [facility] terms of medication safety treatment and agreement. Pt. has received a copy of the Medication Safety agreement. 1. SBEs and skin cancer screening Related to Encntr for general adult and prevention discussed. (5 min. - medical exam w/o abnormal findings good). 2. Domestic violence, alcohol, depression and tobacco screening done today.3. Health Care Proxy on file from 03/04/18 and unchanged.4. Diet and exercise. 5. Check CBC, comp. panel, lipids, free T4 and TSH fasting today. 6. Refer for an eye exam. Assessments Type Assessment Date assessment Encntr for general adult medical exam w/o abnormal findings assessment Fibromyalgia assessment Other specified hypothyroidism assessment Polyosteoarthritis, unspecified assessment Obesity, unspecified assessment Other specified depressive episodes assessment Post-traumatic stress disorder, chronic assessment Anxiety disorder, unspecified assessment Nicotine dependence, cigarettes, uncomplicated assessment Fibrocystic breast disease (FCBD) in female, unspecified 2018 laterality Goals Health Concern Goal Type Priority Status Date No information Medical Equipment Description Device [place] Device Identifier Effective Dates (start - stop ) Status No information Mental Status Date Cognitive Assessment Orientation - Oriented to time, place, person, situation. Health Concerns Observation Date No information Concern Status Date No information
--- OUTSIDE RECORDS SUMMARY | 2019-06-22 08:29 | XMS REPORT | Continuity of Care Document ---
:[address] [facility] Services Address [address] [place] [address] Care Team Providers Name Role Phone Fernando [...] For Visit Copied on Encounter Yamilet Woodard [facility] -2018 Fernando. [facility] [facility] [address], . Ramez, tel:[phone] Yam[place]t, 8700 [place], [phone], Family History Family Member Diagnosis Age At Onset Mother ovarian cyst Maternal grandmother Hypothyroidism Maternal aunts Hypothyroidism Immunizations Vaccine Date Status Comments No information Payers Payer name Insurance type Covered alliance party ID Authorization(s) [facility] [id number] Medicaid MC [id number] Social History Type Description Quantity Date Captured [...] Date No information Medical Equipment Description Device [place] Device Identifier Effective Dates (start - stop ) Status No information Mental Status Date Cognitive Assessment No information Health Concerns Observation Date No information Concern Status Date No information
--- OUTSIDE RECORDS SUMMARY | 2019-06-22 08:29 | XMS REPORT | Continuity of Care Document ---
:1980 Author Organization [facility] Services Address [address] [place] [address] Care Team Providers Name Role Phone Fernando [...] Status Comments No information Procedures Procedure Date PREV VISIT, EST, AGE 18-39 VISUAL ACUITY SCREEN BRIEF EMOTIONAL/BEHAV ASSMT BRIEF EMOTIONAL/BEHAV ASSMT ROUTINE VENIPUNCTURE URINALYSIS, AUTO, W/O SCOPE Results Test Name Date and Time Measure [...] factors. LDL-C is now calculated using the Nikita calculation, which is a validated novel method providing better accuracy than the Friedewald equation in the estimation of LDL-C. Hema CRAMER et al. BONNIE. 2013;310(52): 9512-6861 (http://education. [facility] Center[facility]. om/faq/WSY422)<br/ >
</content> CHOL/HDLC RATIO 2.9 (calc) <5.0 [...] mL/min/1. > OR = 60 N Final NICARAGUAN 10:24:00 73m2 eGFR 123 mL/min/1. > OR = 60 N Final NICARAGUAN 10:24:00 73m2 BUN/CREATININE NOT APPLICABLE (calc) 6-22 Final RATIO 10:24:00 SODIUM 140 mmol/L 135-146 [...] 10:24:00 Panel Description: SED RATE BY MODIFIED LAUROREN Final SED RATE BY MODIFIED BRITANY 10:24:00 6 mm/h < OR = 20 [...] N Final ABSOLUTE NEUTROPHILS 10:24:00 6222 cells/uL 7344-8170 N Final ABSOLUTE LYMPHOCYTES 10:24:00 2020 cells/uL [...] FAQs for interpretation of allantibodies in the [place], prevalence, and associationwith diseases at http://education.[employer]/faq/XXP006

Panel Description: ANTINUCLEAR ANTIBODIES TITER AND PATTERN [...] 09:19:08 NEG mg/dL 15-13 mg/dL Final Specific [place] 09:19:08 1.025 1.001-1.035 Final Urobilinogen 09:19:08 0.2 [...] For Visit Copied on Encounter PREV VISIT, [place] En[facility]tr for [employer] EST, AGE Nation Nation exam (chief general adult 6[address] R[address]ra. Provider: 18-39 Health Medical complaint)C medical exam 2056 [facility], hronic w/o abnormal DreamCatcher OHerien, 2056 Conditions findingsFibromy [place], 2056 [address] Dream (chief algiaOther [place], Catcher Catcher complaint) specified [address], [place]. [place], [place], hypothyroidismP tel:[phone] [place], [place], olyosteoarthrit 8700 [id number]. [place], is, tel:[phone] unspecifiedObes [id number] , [place] ity, unspecifiedOthe r specified depressive episodesPost-tr aumatic stress disorder, chronicAnxiety disorder, unspecifiedNico gail dependence, cigarettes, uncomplicatedFi brocystic breast disease (FCBD) in female, unspecified laterality Family History Family Member Diagnosis Age At Onset Mother ovarian cyst Maternal grandmother Hypothyroidism Maternal aunts Hypothyroidism Immunizations Vaccine Date Status Comments No information Payers Payer name Insurance type Covered libertarian ID Authorization(s) Alexa Baez [id number] [facility] [id number] Medicaid MC [id number] Social History Type Description Quantity Date Captured [...] 69.50 225.00 32.7 85 121/77 18 /min 99 -2018 in lbs 5 /min mm[Hg] 9:20 kg/m AM eter (2) Chief Complaint And Reason For Visit Most recent encounter only, dated '04/18/2019 09:00'. preventive exam ( chief complaint)Chronic Conditions (chief complaint). Description: *See Chronic Conditions HPI Reason For Referral Reason For Referral No information Plan Of Treatment Date Type Action Status Goal Tobacco cessation counseling completed Referral Ordered: ordered Career Professional (related to Encntr for general adult medical exam w/o abnormal findings) Referral Ordered: ordered Referrals: [facility] Professional. Evaluate and treat Referral Ordered: ordered ULTRASOUND BREAST COMPLETE Bilateral Appointment date/timeframe: 04/18/2019 History Of Present Illness Encounter Date Complaint History Of Present Illness Chronic Conditions *See Chronic Conditions HPI preventive exam (comments) Pt. is here today with above complaint. She is doing ok and is trying to stay active an eat a balanced diet. She will seeing Dr. Garcia of [facility] for her pap and pelvic exam next week. She does complain of fibrocystic changes in her lower breasts, left worse than right and this area is painful at times. Denies any nipple discharge or any other skin changes. preventive exam Functional Status Date Functional Assessment No information [...] 2. Related to Other specified Continue with Niotaze Thyroid 30 mg 3 hypothyroidism tabs po qday. 1. ROM exercises. 2. Continue with Related to Fibromyalgia [place] 5/325 one tab po q12 hrs prn. [...] sign and comply with all of the [facility] terms of medication safety treatment and agreement. [...] Date No information Medical Equipment Description Device [place] Device Identifier Effective Dates (start - stop ) Status No information Mental Status Date Cognitive Assessment Orientation - Oriented to time, place, person, situation. Health Concerns Observation Date No information Concern Status Date No information
--- OUTSIDE RECORDS SUMMARY | 2019-06-22 08:29 | XMS REPORT | Continuity of Care Document ---
:1980 Author Organization [facility] Services Address [address] [place] [address] Care Team Providers Name Role Phone Fernando Dowling MD Unavailable Unavailable Allergies, Adverse Reactions, Alerts Substance Reaction Status No information Medications Medication Instructions Dosage Effective Dates Status Comments (start - stop) Xanax 0.25 mg take 1 tablet by 0.25 MG - Active MDD of 1 tab. tablet oral route every day as needed A[place]ka 5 mg-325 mg take 1 tablet by - Active MDD of 2 tabs. tablet oral route every 12 hours as needed for pain for fjbromyalgia as needed Adipex-P 37.5 mg take 1 tablet by 37.5 MG - Active MDD of 1 tab. tablet oral route every day before breakfast Problems Condition Effective Dates (start - stop) Clinical Status Comments No information Procedures Procedure Date No information Results Test Name Date and Time Measure Units Reference Range Abnormal Flag Status Comments No information Advance Directives Directive Yes / No Effective Date File Name No information Encounters Encounter Practice Location Reason(s) Diagnoses Date Provider Providers Description For Visit Copied on Encounter Yamilet Wood[place] [facility] -2018 Fernando. [facility] [address] [place] [facility] [address], . Ramez, tel:[phone] Yam[place]t, [address] [place], [phone], Family History Family Member Diagnosis Age At Onset Mother ovarian cyst Maternal grandmother Hypothyroidism Maternal aunts Hypothyroidism Immunizations Vaccine Date Status Comments No information Payers Payer name Insurance type Covered libertarian ID Authorization(s) D Yuliyaaqkeren [id number] Medicaid MC [id number] Social History Type Description Quantity Date Captured [...] Date No information Medical Equipment Description Device [place] Device Identifier Effective Dates (start - stop ) Status No information Mental Status Date Cognitive Assessment No information Health Concerns Observation Date No information Concern Status Date No information
--- OUTSIDE RECORDS SUMMARY | 2019-06-22 08:29 | XMS REPORT | Continuity of Care Document ---
:[address] [facility] Services Address [address] [facility] [place] [address] Care Team Providers Name Role Phone Fernando [...] For Visit Copied on Encounter Yamilet Wood[place] [facility] -2018 Fernando. [facility] [address] [facility] Yam[place]t [facility], [address], . Ramez, tel:[phone] Yamilet, 87[address] [place], [phone], Family History Family Member Diagnosis Age At Onset Mother ovarian cyst Maternal grandmother Hypothyroidism Maternal aunts Hypothyroidism Immunizations Vaccine Date Status Comments No information Payers Payer name Insurance type Covered alliance party ID Authorization(s) D Yuliyaaqkeren [id number] Medicaid [id number] Social History Type Description Quantity Date Captured [...] Plan Of Treatment Date Type Action Status Appointment Itzel Fay BOOKMAXX History Of Present Illness Encounter Date Complaint History Of Present Illness No information Functional Status Date Functional Assessment No information Medications Administered Medication Instructions Dosage Effective Dates (start - stop) Status Comments No information Instructions Date Instruction Additional Information No information Assessments Type Assessment Date No information Goals Health Concern Goal Type Priority Status Date No information Medical Equipment Description Device [place] Device Identifier Effective Dates (start - stop ) Status No information Mental Status Date Cognitive Assessment No information Health Concerns Observation Date No information Concern Status Date No information
--- OUTSIDE RECORDS SUMMARY | 2019-06-22 08:29 | XMS REPORT | Continuity of Care Document ---
:[address] [facility] Services Address [address] [facility] [address] Care Team Providers Name Role Phone Fernando [...] Yamilet Wood[place] [facility] -2018 Fernando. [facility] 2056 Services, [facility] [address] [facility] [address], . Ramez, tel:[phone] Yam[place]t, 87[address] [place], [phone], Family History Family Member Diagnosis Age At Onset Mother ovarian cyst Maternal grandmother Hypothyroidism Maternal aunts Hypothyroidism Immunizations Vaccine Date Status Comments No information Payers Payer name Insurance type Covered alliance party ID Authorization(s) Alexa Roblestbilly CI [id number] [facility] [id number] Medicaid [id number] Social History Type Description Quantity Date Captured [...] Date No information Medical Equipment Description Device [place] Device Identifier Effective Dates (start - stop ) Status No information Mental Status Date Cognitive Assessment No information Health Concerns Observation Date No information Concern Status Date No information
--- OUTSIDE RECORDS SUMMARY | 2019-06-22 08:29 | XMS REPORT | Continuity of Care Document ---
:1980 Author Organization [facility] Services Address [address] [place] [address] Care Team Providers Name Role Phone Fernando Covarrubias Unavailable Unavailable Allergies, Adverse Reactions, Alerts Substance Reaction Status No information Medications Medication Instructions Dosage Effective Dates (start - stop) Status Comments No information Problems Condition Effective Dates (start - stop) Clinical Status Comments No information Procedures Procedure Date Recurring Visit Within Durga Year B[employer]wings-[employer] Panoramic Film Comprehensive Oral Evaluation-New Or Established P Results Test Name Date and Time Measure Units Reference Range Abnormal Flag Status Comments No information Advance Directives Directive Yes / No Effective Date File Name No information Encounters Encounter Practice Location Reason(s) Diagnoses Date Provider Providers Description For Visit Copied on Encounter Yamilet Woodard Encounter for [facility] screening for 9-201 Fernando. [facility] 2056 [facility], [facility] [address] Dream for dental exam and Catcher Catcher cleaning w/o [place], [place], abnormal [place], [facility] [place], for dental exam and [address], [id number], cleaning w abnormal [place]. [place] findings tel:[phone] Family History Family Member Diagnosis Age At Onset Mother ovarian cyst Maternal grandmother Hypothyroidism Maternal aunts Hypothyroidism Immunizations Vaccine Date Status Comments No information Payers Payer name Insurance type Covered constitution party ID Authorization(s) D Dentaquest CI [id number] Medicaid [id number] Social History Type Description Quantity Date Captured [...] Date Type Action Status Appointment Itzel Fay History Of Present Illness Encounter Date Complaint History Of Present Illness No information Functional Status Date Functional Assessment No information Medications Administered Medication Instructions Dosage Effective Dates (start - stop) Status Comments No information Instructions Date Instruction Additional Information No information Assessments Type Assessment Date No information Goals Health Concern Goal Type Priority Status Date No information Medical Equipment Description Device [place] Device Identifier Effective Dates (start - stop ) Status No information Mental Status Date Cognitive Assessment No information Health Concerns Observation Date No information Concern Status Date No information
--- OUTSIDE RECORDS SUMMARY | 2019-06-22 08:29 | XMS REPORT | Continuity of Care Document ---
:1980 Author Organization [facility] Address [address] [facility] [place] [address] Care Team Providers Name Role Phone Fernando [...] Yamilet Wood[place] [facility] -2018 Fernando. [facility] [facility] [address] [facility] [address], . Ramez, tel:[phone] [place], 87[address] [place], [phone], Family History Family Member Diagnosis Age At Onset Mother ovarian cyst Maternal grandmother Hypothyroidism Maternal aunts Hypothyroidism Immunizations Vaccine Date Status Comments No information Payers Payer name Insurance type Covered libertarian ID Authorization(s) Alexa Aetbilly CI [id number] [facility] [id number] Medicaid [id number] Social History Type Description Quantity Date Captured [...] Date No information Medical Equipment Description Device [place] Device Identifier Effective Dates (start - stop ) Status No information Mental Status Date Cognitive Assessment No information Health Concerns Observation Date No information Concern Status Date No information
--- OUTSIDE RECORDS SUMMARY | 2019-06-22 08:29 | XMS REPORT | Continuity of Care Document ---
:1980 Author Organization [facility] Address [address] [facility] [place] [address] Care Team Providers Name Role Phone Fernando [...] Encounter Yamilet Wood[facility] -2018 Fernando. [facility] Services[facility] [address] [facility] [address], . Ramez, tel:[phone] Yam[place]t, [address] [place], [phone], Family History Family Member Diagnosis Age At Onset Mother ovarian cyst Maternal grandmother Hypothyroidism Maternal aunts Hypothyroidism Immunizations Vaccine Date Status Comments No information Payers Payer name Insurance type Covered democrat ID Authorization(s) Alexa Aetna CI [id number] [facility] [id number] Medicaid MC [id number] Social History Type Description Quantity Date Captured [...] Date No information Medical Equipment Description Device [place] Device Identifier Effective Dates (start - stop ) Status No information Mental Status Date Cognitive Assessment No information Health Concerns Observation Date No information Concern Status Date No information
--- OUTSIDE RECORDS SUMMARY | 2019-06-22 08:29 | XMS REPORT | Continuity of Care Document ---
:1980 Author Organization [facility] Address [address] [place] [address] Care Team Providers Name Role Phone Joceline [...] information Procedures Procedure Date OFFICE/OUTPATIENT VISIT, EST Results Test Name Date [...] 98 mL/min/1 > OR = N Final NIGERIEN 11:18:00 .73m2 60 eGFR 114 mL/min/1 > OR = N Final NIGERIEN 11:18:00 .73m2 60 BUN/CREATININE NOT (calc) 6-22 [...] AI <1.0 N Final 11:18:00 NEG NEG SM/BIODIESEL PRODUCTION TECHNICIAN <1.0 AI <1.0 N Final ANTIBODY 11:18:00 NEG NEG BIODIESEL PRODUCTION TECHNICIAN ANTIBODY <1.0 AI <1.0 N Final 11:18:00 [...] NEG AI <1.0 NEG N Final The [place] does not ANTIBODY 11:18:00 rule out autoimmune diseasecharacterized by other autoantibody specificities suchas rheumatoid arthritis, autoimmune hepatitis, primarybiliary cholangitis, autoimmune thyroiditis, Laron'sdisease, pernicious anemia, autoimmune neuropathies,vasculitis, celiac disease and bullous disease.Please contact your local [facility] laboratoryif you are interested in additional testing.

Panel Description: INTERPRETATION Final INTERPRETATION 11:18:00 Final All three negative tiers indicate the absence of detectable antibodies to component analytes consistingof double stranded DNA (dsDNA), chromatin, ribonucleoprotein (BIODIESEL PRODUCTION TECHNICIAN), Encinas/BIODIESEL PRODUCTION TECHNICIAN (Sm/BIODIESEL PRODUCTION TECHNICIAN), Encinas (Sm), SS-A, SS-B, Johanna-1, Scl-70, centromere [...] N Final ABSOLUTE NEUTROPHILS 11:18:00 6601 cells/uL 1720-3105 N Final ABSOLUTE LYMPHOCYTES 11:18:00 2998 cells/uL [...] <8.0 H Final Panel Description: SM AND SM/BIODIESEL PRODUCTION TECHNICIAN ANTIBODIES Final SM ANTIBODY 11:18:00 <1.0 NEG AI <1.0 NEG N Final SM/BIODIESEL PRODUCTION TECHNICIAN ANTIBODY 11:18:00 <1.0 NEG AI <1.0 NEG [...] tiered Multiplex 11 AntibodyCascade. Testing in the [place] stops at the firstpositive result, and does not preclude additionalpositive results. Further laboratory testing may beconsidered if clinically indicated. Visit Physician FAQs for interpretation of allantibodies in the [place], prevalence, and associationwith diseases at http://education.[employer]/faq/QYP601

Advance Directives Directive Yes / No Effective Date File Name No information Encounters Encounter Practice Location Reason(s) Diagnoses Date Provider Providers Description For Visit Copied on Encounter OFFICE/OUTPAT Yamilet Woodard Abnormal SLE (systemic [employer] IENT VISIT, [facility] Lab Study lupus [facility]. 2056 Provider: [facility] (chief erythematosus 9 [employer] [facility], complaint) related Jalen Myrick, 2056 Dream syndrome) [place], [place], [address] [address], [place]. Arlene Myrick, tel:[phone] Yamilet Myrick, [address] [place], [place], [place], [id number]. [id number], tel:[phone] Family History Family Member Diagnosis Age At Onset Mother ovarian cyst Maternal grandmother Hypothyroidism Maternal aunts Hypothyroidism Immunizations Vaccine Date Status Comments No information Payers Payer name Insurance type Covered libertarian ID Authorization(s) Alexa [facility] [id number] Medicaid MC [id number] Social History Type Description Quantity Date Captured [...] 88 129/88 98.20 F 18 /min 2.23 in lbs 0 /min mm[Hg] meter(2) 9:45 [...] Date No information Medical Equipment Description Device [place] Device Identifier Effective Dates (start - stop ) Status No information Mental Status Date Cognitive Assessment Orientation - Oriented to time, place, person, situation. Health Concerns Observation Date No information Concern Status Date No information
--- OUTSIDE RECORDS SUMMARY | 2019-06-22 08:29 | XMS REPORT | Continuity of Care Document ---
:1980 Author Organization [facility] Services Address [address] [place] [address] Care Team Providers Name Role Phone Fernando [...] Woodard [facility] -2018 Fernando. [facility] [address] [facility] [address] [facility] Yam[facility]t [facility], [address], . Ramez, tel:[phone] Yamilet, 87[address] [place], [phone], Family History Family Member Diagnosis Age At Onset Mother ovarian cyst Maternal grandmother Hypothyroidism Maternal aunts Hypothyroidism Immunizations Vaccine Date Status Comments No information Payers Payer name Insurance type Covered republican ID Authorization(s) Medicaid MC [id number] Social History Type Description Quantity Date Captured [...] Date Type Action Status Appointment Itzel Fay BOOKED History Of Present Illness Encounter Date Complaint History Of Present Illness No information Functional Status Date Functional Assessment No information Medications Administered Medication Instructions Dosage Effective Dates (start - stop) Status Comments No information Instructions Date Instruction Additional Information No information Assessments Type Assessment Date No information Goals Health Concern Goal Type Priority Status Date No information Medical Equipment Description Device [place] Device Identifier Effective Dates (start - stop ) Status No information Mental Status Date Cognitive Assessment No information Health Concerns Observation Date No information Concern Status Date No information
--- OUTSIDE RECORDS SUMMARY | 2019-06-22 08:29 | XMS REPORT | Continuity of Care Document ---
:1980 Author Organization [facility] Services Address [address] [facility] [place] [address] Care Team Providers Name Role Phone Fernando [...] Visit Copied on Encounter Yamilet Wood[facility] -2018 Fernando. [facility] Services, [facility] [address] [facility] [address], . Ramez, tel:[phone] Yamilet, 87[address] [place], [phone], Family History Family Member Diagnosis Age At Onset Mother ovarian cyst Maternal grandmother Hypothyroidism Maternal aunts Hypothyroidism Immunizations Vaccine Date Status Comments No information Payers Payer name Insurance type Covered libertarian ID Authorization(s) Alexa Baez CI [id number] [facility] [id number] Medicaid MC [id number] Social History Type Description Quantity Date Captured [...] Date No information Medical Equipment Description Device [place] Device Identifier Effective Dates (start - stop ) Status No information Mental Status Date Cognitive Assessment No information Health Concerns Observation Date No information Concern Status Date No information
--- OUTSIDE RECORDS SUMMARY | 2019-06-22 08:29 | XMS REPORT | Continuity of Care Document ---
:[address] [facility] Services Address [address] [facility] [place] [address] Care Team Providers Name Role Phone Fernando [...] For Visit Copied on Encounter Yamilet Woodard [facility] -2018 Fernando. [facility] [address] [facility] [address] [facility] [address], . [place]z, tel:[phone] [place], [address]00 [place], [phone], Family History Family Member Diagnosis Age At Onset Mother ovarian cyst Maternal grandmother Hypothyroidism Maternal aunts Hypothyroidism Immunizations Vaccine Date Status Comments No information Payers Payer name Insurance type Covered libertarian ID Authorization(s) D Yuliyaaqkeren [id number] Medicaid [id number] Social History Type Description Quantity Date Captured [...] Date No information Medical Equipment Description Device [place] Device Identifier Effective Dates (start - stop ) Status No information Mental Status Date Cognitive Assessment No information Health Concerns Observation Date No information Concern Status Date No information
--- OUTSIDE RECORDS SUMMARY | 2019-06-22 08:29 | XMS REPORT | Continuity of Care Document ---
:1980 Author Organization [facility] Services Address [address] [place] [address] Care Team Providers Name Role Phone Fernando [...] Copied on Encounter Yamilet Woodard SLE (systemic [facility] lupus 9- Fernando. Health Medical erythematosus 9 2056 Services, related [facility] [address] Dream syndrome) [place], [place], [place], [address], [place]. [place], tel:[phone] [place], [phone], Family History Family Member Diagnosis Age At Onset Mother ovarian cyst Maternal grandmother Hypothyroidism Maternal aunts Hypothyroidism Immunizations Vaccine Date Status Comments No information Payers Payer name Insurance type Covered green party ID Authorization(s) [facility] [id number] [id number] Social History Type Description Quantity Date Captured [...] Date No information Medical Equipment Description Device [place] Device Identifier Effective Dates (start - stop ) Status No information Mental Status Date Cognitive Assessment No information Health Concerns Observation Date No information Concern Status Date No information
--- OUTSIDE RECORDS SUMMARY | 2019-06-22 08:29 | XMS REPORT | Continuity of Care Document ---
:1980 Author Organization [facility] Services Address [address] [facility] [place] [address] Care Team Providers Name Role Phone Fernando [...] Woodard [facility] -2018 Fernando. [facility] [address] [facility] [address] [facility] [place], [address], . [place]z, tel:[phone] [place], [address] [place], [phone], Family History Family Member Diagnosis Age At Onset Mother ovarian cyst Maternal grandmother Hypothyroidism Maternal aunts Hypothyroidism Immunizations Vaccine Date Status Comments No information Payers Payer name Insurance type Covered democrat ID Authorization(s) Alexa Roblestbilly CI [id number] [facility] [id number] Medicaid [id number] Social History Type Description Quantity Date Captured [...] Date No information Medical Equipment Description Device [place] Device Identifier Effective Dates (start - stop ) Status No information Mental Status Date Cognitive Assessment No information Health Concerns Observation Date No information Concern Status Date No information
[2019-06-22 08:38] VITALS: BP 128/79
--- NOTE | 2019-06-22 09:19 | UC ---
Throat Pain/Nasal Reymundo HPI - HPI Summary HPI Summary: 39-year-old female presents with 4-5 day history of nasal congestion, runny nose , sinus pressure, mild sore throat, general malaise, and fatigue. States approximately one week ago her son started with similar symptoms. Denies fever , chills, ear pain, dysphagia, cough, difficulty breathing, abdominal pain, nausea, vomiting, or diarrhea. - History of Current Complaint Chief Complaint: UCRespiratory Stated Complaint: SINUSES Time Seen by Provider: 06/22/19 09:12 Hx Obtained From: Patient Hx Last Menstrual Period: 06/02/19 Pain Intensity: 0 - Allergies/Home Medications Allergies/Adverse Reactions: Allergies Allergy/AdvReac Type Severity Reaction Status Date / Time amoxicillin Allergy Severe Hives Verified 06/22/19 08:38 clavulanic acid Allergy Severe Hives Verified 06/22/19 08:38 [From Augmentin] shellfish derived Allergy Severe anaphylaxis Verified 06/22/19 08:38 Sulfa (Sulfonamide Allergy Severe Hives, Verified 06/22/19 08:38 Antibiotics) difficulty breathing PMH/Surg Hx/FS Hx/Imm Hx Endocrine History: Thyroid Disease - Surgical History Surgical History: Yes Surgery Procedure, Year, and Place: tonsillectomy, wisdom teeth removal, surgical removal of a glass foreign body from foot - Family History Known Family History: Positive: Other - : liver and renal failure, nonalcoholic cirrhosis, abdominal aneurism, - Social History Occupation: Student Lives: With Family Alcohol Use: Rare Substance Use Type: None Smoking Status (MU): Light Every Day Tobacco Smoker Amount Used/How Often: 1 cig/day Have You Smoked in the Last Year: Yes - Immunization History Most Recent Influenza Vaccination: None Most Recent Tetanus Shot: Unk Most Recent Pneumonia Vaccination: None Review of Systems All Other Systems Reviewed And Are Negative: Yes Constitutional: Positive: Fatigue. Negative: Fever, Chills Skin: Negative: Rash Eyes: Negative: Drainage, Eye Redness ENT: Positive: Sore Throat, Nasal Discharge, Sinus Congestion, Sinus Pain/ Tenderness. Negative: Ear Ache Respiratory: Negative: Shortness Of Breath, Cough Cardiovascular: Negative: Palpitations, Chest Pain Gastrointestinal: Negative: Abdominal Pain, Vomiting, Diarrhea, Nausea Genitourinary: Positive: Negative Musculoskeletal: Positive: Negative Neurological: Positive: Negative Is Patient Immunocompromised?: No Physical Exam - Summary Physical Exam Summary: GENERAL APPEARANCE: Well developed, well nourished, alert and cooperative, and appears to be in no acute distress. EYES: Conjunctiva clear. No drainage. PERRL, EOM intact. Vision is grossly intact. EARS: External auditory canals and tympanic membranes clear, hearing grossly intact. NOSE: Mild nasal congestion. No nasal discharge. No sinus tenderness. THROAT: Pharyngeal cobblestoning. Tonsils surgically absent. Uvula midline. NECK: Neck supple, non-tender without lymphadenopathy. CARDIAC: Normal S1 and S2. No S3, S4 or murmurs. Rhythm is regular. There is no peripheral edema, cyanosis or pallor. Extremities are warm and well perfused. Capillary refill is less than 2 seconds. Peripheral pulses intact. LUNGS: Clear to auscultation without rales, rhonchi, wheezing or diminished breath sounds. ABDOMEN: Positive bowel sounds. Soft, nondistended, nontender. No guarding or rebound. No masses or hepatosplenomegally. MUSKULOSKELETAL: ROM intact to all extremities. No joint erythema or tenderness. Normal muscular development. Normal gait. SKIN: Skin normal color, texture and turgor with no lesions or eruptions. Triage Information Reviewed: Yes Vital Signs: Initial Vital Signs Temp 98.1 F 06/22/19 08:36 Pulse 99 06/22/19 08:36 Resp 18 06/22/19 08:36 BP 128/79 06/22/19 08:36 Pulse Ox 100 06/22/19 08:36 Vital Signs Reviewed: Yes Throat Pain/Nasal Course/Dx - Course Course Of Treatment: 39-year-old female presents with 4-5 day history of nasal congestion, runny nose , sinus pressure, mild sore throat, general malaise, and fatigue. States approximately one week ago her son started with similar symptoms. Denies fever , chills, ear pain, dysphagia, cough, difficulty breathing, abdominal pain, nausea, vomiting, or diarrhea. Afebrile. Vital signs stable. Patient had mild nasal congestion, pharyngeal cobblestoning, surgically absent tonsils, clear bilateral breath sounds, and otherwise unremarkable exam. Recommending symptomatic treatment for a viral upper respiratory infection. Patient is to return here or follow up with her primary care provider in 3-5 days if symptoms are not improving. Anticipatory guidance and warning symptoms were reviewed with the patient. Verbalizes understanding and agrees with plan of care. - Differential Dx/Diagnosis Differential Diagnosis/HQI/PQRI: Mononucleosis, Pharyngitis, Sinusitis, URI Provider Diagnosis: Viral URI Discharge ED - Sign-Out/Discharge Documenting (check all that apply): Patient Departure All imaging exams completed and their final reports reviewed: No Studies - Discharge Plan Condition: Stable Disposition: HOME Prescriptions: Fluticasone NASAL SPRAY 50MCG* [Flonase NASAL SPRAY 50MCG*] 2 spray BOTH NARES DAILY #1 btl Patient Education Materials: Upper Respiratory Infection (ED) Referrals: Fernando Dowling MD [Primary Care Provider] - Additional Instructions: Your history and exam are consistent with a viral upper respiratory infection. Viral infections do not respond to antibiotics and are limited to the treatment of symptoms. Viral infections typically run their course in 7-10 days. Drink plenty of fluids to avoid dehydration especially if you are running any fever. Use a saline rinse kit such as Neti Pot or NeilMed at least twice a day to help thin secretions and promote drainage of the sinuses. Use fluticasone (Flonase) nasal spray 2 sprays each nostril once daily. Use an over the counter decongestant such as Sudafed to help with the congestion. Take over the counter acetaminophen (Tylenol) or ibuprofen (Advil, Motrin) according to directions as needed for pain or fever. Use salt water gargles several times a day if you have a sore throat. You may also use Chloraseptic spray or Cepacol lonzenges according to directions which contain a numbing medication and can provide some temporary relief from your sore throat. Follow up with your primary care provider in 7 dyas if symptoms persist. Seek immediate medical attention in the emergency room if you have fever greater than 100.5 F despite taking acetaminophen or ibuprofen, have chest pain , difficulty breathing, are unable to swallow, or have any worsening of symptoms. - Billing Disposition and Condition Condition: STABLE Disposition: Home
== END 2019-06-22 09:35 | disposition home or self-care (01) ==
LOC: UCEAST 08:22
DX: J06.9 Acute upper respiratory infection, unspecified (principal); F17.210 Nicotine dependence, cigarettes, uncomplicated; Z88.0 Allergy status to penicillin; Z88.2 Allergy status to sulfonamides; Z91.013 Allergy to seafood
CPT/HCPCS: 99212; G0463

== ENCOUNTER 2019-11-07 09:50 | Emergency (ER) | payer OTHER ==
--- OUTSIDE RECORDS SUMMARY | 2019-11-07 09:57 | XMS REPORT | Continuity of Care Document ---
:1980 Author Organization [facility] Services Address [address] [facility] [place] [address] Care Team Providers Name Role Phone Fernando Dowling MD Unavailable Unavailable Allergies, Adverse Reactions, Alerts Substance Reaction Status No information Medications Medication Instructions Dosage Effective Dates Status Comments (start - stop) [place] 5 mg-325 mg take 1 tablet by [...] on Encounter Yamilet Woodard [facility] -2018 Fernando. [facility] [address] [facility], [facility] [address] [place] My[place] [facility], [address], . Ramez, tel:[phone] [place], 87[address] [place], [phone], Family History Family Member Diagnosis Age At Onset Mother ovarian cyst Maternal grandmother Hypothyroidism Maternal aunts Hypothyroidism Immunizations Vaccine Date Status Comments No information Payers Payer name Insurance type Covered republican ID Authorization(s) Alexa Rodriguez [id number] Medicaid MC [id number] Social History Type Description Quantity Date Captured [...] Type Action Status Appointment Itzel Fay BOOKED Appointment Itzel Fay BOOKED History Of Present [...] Date No information Medical Equipment Description Device [place] Device Identifier Effective Dates (start - stop ) Status No information Mental Status Date Cognitive Assessment No information Health Concerns Observation Date No information Concern Status Date No information
--- OUTSIDE RECORDS SUMMARY | 2019-11-07 09:57 | XMS REPORT | Continuity of Care Document ---
:1980 Author Organization [facility] Services Address [address] [facility] [place] [address] Care Team Providers Name Role Phone Fernando [...] on Encounter Yamilet Woodard [facility] -2019 Fernando. [facility] [address] [facility] [address] [facility] [address], . Ramez, tel:[phone] [place], 87[address] [place], [phone], Family History Family Member Diagnosis Age At Onset Mother ovarian cyst Maternal grandmother Hypothyroidism Maternal aunts Hypothyroidism Immunizations Vaccine Date Status Comments No information Payers Payer name Insurance type Covered green party ID Authorization(s) [facility] [place] Medicaid CI [id number] Medicaid MC [id number] Social History Type Description Quantity Date Captured [...] Date No information Medical Equipment Description Device [place] Device Identifier Effective Dates (start - stop ) Status No information Mental Status Date Cognitive Assessment No information Health Concerns Observation Date No information Concern Status Date No information
--- OUTSIDE RECORDS SUMMARY | 2019-11-07 09:57 | XMS REPORT | Continuity of Care Document ---
:1980 Author Organization [facility] Services Address [address] [place] [address] Care Team Providers Name Role Phone Linda Lundy Unavailable Unavailable Allergies, Adverse Reactions, Alerts Substance Reaction Status No information Medications Medication Instructions Dosage Effective Dates (start - stop) Status Comments No information Problems Condition Effective Dates (start - stop) Clinical Status Comments No information Procedures Procedure Date Psychotherapy, 45 Min Results Test Name Date and Time Measure Units Reference Range Abnormal Flag Status Comments No information Advance Directives Directive Yes / No Effective Date File Name No information Encounters Encounter Practice Location Reason(s) Diagnoses Date Provider Providers Description For Visit Copied on Encounter Psychotherapy Yamilet Woodard Post-traumati Gina Mckeon. Referring , [address] [facility] stress 2056 Provider: Health disorder, 0 Richelle Potter Services, chronicMajor Rita Myrick, [address]56 [address] depressive [place], [place], [place] disorder, [address], [place]. [place], [place] recurrent, tel:[phone] [place], [place], [place], mild 8760 [address]. [place], tel:[phone] [place], 8760 [phone] , Family History Family Member Diagnosis Age At Onset Mother ovarian cyst Maternal grandmother Hypothyroidism Maternal aunts Hypothyroidism Immunizations Vaccine Date Status Comments No information Payers Payer name Insurance type Covered republican ID Authorization(s) [employer] [place] Medicaid CI [id number] Medicaid MC [id number] Social History Type Description Quantity Date Captured [...] No information Assessments Type Assessment Date assessment Post-traumatic stress disorder, chronic assessment Major depressive disorder, recurrent, mild Goals Health Concern Goal Type Priority Status Date No information Medical Equipment Description Device [place] Device Identifier Effective Dates (start - stop ) Status No information Mental Status Date Cognitive Assessment No information Health Concerns Observation Date No information Concern Status Date No information
--- OUTSIDE RECORDS SUMMARY | 2019-11-07 09:57 | XMS REPORT | Continuity of Care Document ---
:1980 Author Organization [facility] Address [address] [place] [address] Care Team Providers Name Role Phone Fernando Dowling MD Unavailable Unavailable Allergies, Adverse Reactions, Alerts Substance Reaction Status No information Medications Medication Instructions Dosage Effective Dates Status Comments (start - stop) Wellbutrin XL 150 mg take 1 tablet by oral 150 MG - Active 24 hr tablet, route every day extended release Problems Condition Effective Dates (start - stop) Clinical Status Comments No information Procedures Procedure Date OFFICE/OUTPATIENT VISIT, EST Results Test Name Date and Time Measure Units Reference Range Abnormal Flag Status Comments No information Advance Directives Directive Yes / No Effective Date File Name No information Encounters Encounter Practice Location Reason(s) Diagnoses Date Provider Providers Description For Visit Copied on Encounter OFFICE/OUTPA Yamilet Dengida right Systemic lupus Nitesh [facility] VISIT, [facility] wrist pain erythematosus, Fernando. [facility] (chief unspecified SLE 2056 Services, complaint) type, unspecified [employer] [address] organ involvement [place], Dream statusRight wrist [place], [place], [place] painDysthymic [address], [place]. [place], disorderNicotine tel:[phone] [place], dependence, [address] [place], cigarettes, [phone] uncomplicated , [place] Family History Family Member Diagnosis Age At Onset Mother ovarian cyst Maternal grandmother Hypothyroidism Maternal aunts Hypothyroidism Immunizations Vaccine Date Status Comments No information Payers Payer name Insurance type Covered democrat ID Authorization(s) [employer] [place] Medicaid CI [id number] Medicaid MC [id number] Social History Type Description Quantity Date Captured [...] Surface Circumference percentile Ox Ox Area 69.50 235.00 34.2 75 130/83 98.60 F 18 /min 2.29 in lbs 1 /min mm[Hg] meter(2) 1:49 kg/m PM eter (2) Chief Complaint And Reason For Visit Most recent encounter only, dated 10/07/2019 13:40'. right wrist pain ( chief complaint). Description: Onset: 2 months ago. Duration: 2 Months. Severitylevel is moderate. It occurs constantly and is stable. Location: right wrist. There is no radiation. The pain is aching and burning. Context: there is no injury. The pain is aggravated by bending, lifting, pushing and picking up the baby and turning a door handle. The pain is relieved by brace/ splint. Associated symptoms include crepitus, decreased mobility, joint tenderness, nocturnal awakening, nocturnal pain and swelling. Pertinent negatives include bruising, difficulty initiating sleep,joint instability, limping, locking, numbness, popping, spasms, tingling in the arms, tingling in the legs and weakness. Reason For Referral Reason For Referral No information Plan Of Treatment Date Type Action Status Goal Tobacco cessation counseling completed Referral Ordered: ordered X-RAY EXAM OF WRIST Right Appointment date/timeframe: Today Appointment Itzel Fay BOOKED Appointment Itzel Fay BOOKED Appointment Itzel Fay BOOKED History Of Present Illness Encounter Date Complaint History Of Present Illness right wrist pain (comments) Pt. is here today with above complaint. She is smoking about 1/2 PPD and smokes when she is stressed which she has more of in the last fw weeks secondary to several life stressors including finances, residence etc. She relates that her depression has been worse over the last few weeks and she would like to resume her Wellbutrin. She is seeing Linda today. Denies any suicidal ideation/intent/plan. She was recently diagnosed with mild SLE by Dr. Valdovinos of Rheumatology and was started on Prednisone. She has only been taking this med as needed and not routinely. She has not followed up with Dr. Valdovinos. right wrist pain Onset: 2 months ago. Duration: 2 Months. Severity level is moderate. It occurs constantly and is stable. Location: right wrist. There is no radiation. The pain is aching and burning. Context: there is no injury. The pain is aggravated by bending, lifting, pushing and picking up the baby and turning a door handle. The pain is relieved by brace/splint. Associated symptoms include crepitus, decreased mobility, joint tenderness, nocturnal awakening, nocturnal pain and swelling. Pertinent negatives include bruising, difficulty initiating sleep, joint instability, limping, locking, numbness, popping, spasms, tingling in the arms, tingling in the legs and weakness. Functional Status Date Functional Assessment No information Medications Administered Medication Instructions Dosage Effective Dates (start - stop) Status Comments No information Instructions Date Instruction Additional Information 1. Will resume Wellbutrin XL 150 mg Related to Dysthymic disorder po qday. 2. Pt. to see BH again and is seeing Linda Fuentes today. 3. Monitor. 1. Refer to PT. 2. Resume Prednisone Related to Right wrist pain 10 mg po qday. 3. Use right wrist brace routinely. 4. Check right wrist x-ray. 1. F/U with Dr. Valdovinos. 2. Resume Related to Systemic lupus Prednisone 10 mg po qday. erythematosus, unspecified SLE type, unspecified organ involvement status Assessments Type Assessment Date assessment Systemic lupus erythematosus, unspecified SLE type, unspecified organ involvement status assessment Right wrist pain assessment Dysthymic disorder assessment Nicotine dependence, cigarettes, uncomplicated Goals Health Concern Goal Type Priority Status Date No information Medical Equipment Description Device [place] Device Identifier Effective Dates (start - stop ) Status No information Mental Status Date Cognitive Assessment Orientation - Oriented to time, place, person, situation. Health Concerns Observation Date No information Concern Status Date No information
--- OUTSIDE RECORDS SUMMARY | 2019-11-07 09:57 | XMS REPORT | Continuity of Care Document ---
:1980 Author Organization [facility] Services Address [address] [place] [address] Care Team Providers Name Role Phone Fernando Dowling MD Unavailable Unavailable Allergies, Adverse Reactions, Alerts Substance Reaction Status No information Medications Medication Instructions Dosage Effective Dates Status Comments (start - stop) [place] 5 mg-325 mg take 1 tablet by - No Longer MDD of 2 tabs. tablet oral route every Active 12 hours as needed for pain for fjbromyalgia as needed [place] 5 mg-325 mg take 1 tablet by [...] For Visit Copied on Encounter Yamilet Woodard [facility]2018 Fernando. [facility] [address] Services, [facility] [address] [place], [place], [address], . Ramez, tel:[phone] [place], 87[address] [place], [phone], Family History Family Member Diagnosis Age At Onset Mother ovarian cyst Maternal grandmother Hypothyroidism Maternal aunts Hypothyroidism Immunizations Vaccine Date Status Comments No information Payers Payer name Insurance type Covered constitution party ID Authorization(s) Alexa Lentz [facility] [id number] Medicaid MC [id number] Social History Type Description Quantity Date Captured [...] Medications Administered Medication Instructions Dosage Effective Dates Status Comments (start - stop) [place] 5 mg-325 mg take 1 tablet by - No Longer MDD of 2 tabs. tablet oral route every Active 12 hours as needed for pain for fjbromyalgia as needed Instructions Date Instruction Additional Information No information Assessments Type Assessment Date No information Goals Health Concern Goal Type Priority Status Date No information Medical Equipment Description Device [place] Device Identifier Effective Dates (start - stop ) Status No information Mental Status Date Cognitive Assessment No information Health Concerns Observation Date No information Concern Status Date No information
--- OUTSIDE RECORDS SUMMARY | 2019-11-07 09:57 | XMS REPORT | Continuity of Care Document ---
:1980 Author Organization [facility] Address [address] [place] [address] Care Team Providers Name Role Phone Fernando Covarrubias Unavailable Unavailable Allergies, Adverse Reactions, Alerts Substance Reaction Status No information Medications Medication Instructions Dosage Effective Dates (start - stop) Status Comments No information Problems Condition Effective Dates (start - stop) Clinical Status Comments No information Procedures Procedure Date Recurring Visit Within Durga Year Bitewing-Single Film Intraoral-Periapical First Film Recement [place] [facility] Results Test Name Date and Time Measure Units Reference Range Abnormal Flag Status Comments No information Advance Directives Directive Yes / No Effective Date File Name No information Encounters Encounter Practice Location Reason(s) Diagnoses Date Provider Providers Description For Visit Copied on Encounter Yamilet [place] Encounter for [facility] screening for 6-201 Fernando. [facility] Dental dental [address] Services, disordersEncounter Dream [address] for dental exam and Catcher Catcher cleaning [place] Yamilet, [place], [place], [address], [id number], [place]. [place] tel:[phone] Family History Family Member Diagnosis Age At Onset Mother ovarian cyst Maternal grandmother Hypothyroidism Maternal aunts Hypothyroidism Immunizations Vaccine Date Status Comments No information Payers Payer name Insurance type Covered alliance party ID Authorization(s) Emmanuelle Villalpando [id number] Medicaid [id number] Social History Type Description Quantity Date Captured [...] Date No information Medical Equipment Description Device [place] Device Identifier Effective Dates (start - stop ) Status No information Mental Status Date Cognitive Assessment No information Health Concerns Observation Date No information Concern Status Date No information
--- OUTSIDE RECORDS SUMMARY | 2019-11-07 09:57 | XMS REPORT | Continuity of Care Document ---
:[address] [facility] Address [address] [facility] [place] [address] Care Team Providers Name Role Phone Fernando Dowling MD Unavailable Unavailable Allergies, Adverse Reactions, Alerts Substance Reaction Status No information Medications Medication Instructions Dosage Effective Dates Status Comments (start - stop) Xanax 0.25 mg take 1 tablet by 0.25 MG - Active MDD of 1 tab. tablet oral route every day as needed Problems Condition Effective Dates (start [...] on Encounter Yamilet Woodard [facility] Fernando. [facility] [address] Services, [facility] [address] [facility] Yamilet [place], [address], . [place], tel:[phone] Yamilet, [address] [place], [phone], Family History Family Member Diagnosis Age At Onset Mother ovarian cyst Maternal grandmother Hypothyroidism Maternal aunts Hypothyroidism Immunizations Vaccine Date Status Comments No information Payers Payer name Insurance type Covered constitution party ID Authorization(s) Emmanuelle Villalpando [id number] Medicaid [id number] Social History Type Description Quantity Date Captured [...] Date No information Medical Equipment Description Device [place] Device Identifier Effective Dates (start - stop ) Status No information Mental Status Date Cognitive Assessment No information Health Concerns Observation Date No information Concern Status Date No information
--- OUTSIDE RECORDS SUMMARY | 2019-11-07 09:57 | XMS REPORT | Continuity of Care Document ---
:1980 Author Organization [facility] Address [address] [place] [address] Care Team Providers Name Role Phone Fernando Dowling MD Unavailable Unavailable Allergies, Adverse Reactions, Alerts Substance Reaction Status No information Medications Medication Instructions Dosage Effective Dates Status Comments (start - stop) Bazine 5 mg-325 mg take 1 tablet by [...] Copied on Encounter Yamilet Woodard [facility] Fernando. [facility] [address] [facility] [address] [place], [address], . [place], tel:[phone] Yamilet, [address] [place], [phone], Family History Family Member Diagnosis Age At Onset Mother ovarian cyst Maternal grandmother Hypothyroidism Maternal aunts Hypothyroidism Immunizations Vaccine Date Status Comments No information Payers Payer name Insurance type Covered constitution party ID Authorization(s) D [employer] [place] [id number] Medicaid [id number] Social History Type Description Quantity Date Captured [...] Date No information Medical Equipment Description Device [place] Device Identifier Effective Dates (start - stop ) Status No information Mental Status Date Cognitive Assessment No information Health Concerns Observation Date No information Concern Status Date No information
--- OUTSIDE RECORDS SUMMARY | 2019-11-07 09:57 | XMS REPORT | Continuity of Care Document ---
:1980 Author Organization [facility] Address [address] [place] [address] Care Team Providers Name Role Phone Fuentes JB Linda Unavailable Unavailable Allergies, Adverse Reactions, Alerts Substance [...] For Visit Copied on Encounter Yamilet Woodard Gina Mckeon. [facility] -2019 [address] [facility], Yamilet Myrick, [address] [facility], [address], . Catcher tel:[phone] Ramez, [address] [place], [place], [phone], Family History Family Member Diagnosis Age At Onset Mother ovarian cyst Maternal grandmother Hypothyroidism Maternal aunts Hypothyroidism Immunizations Vaccine Date Status Comments No information Payers Payer name Insurance type Covered democrat ID Authorization(s) [employer] [place] Medicaid CI [id number] Medicaid MC [id number] Social History Type Description Quantity Date Captured Comments Sex Female Vital Signs Date / Height Weight BMI Pulse Blood Temperature Respiratory Body Head BMI Pulse Inhaled Time: Rate Pressure Rate Surface Circumference percentile [place] Area No information Chief Complaint And Reason For Visit No information Reason For Referral Reason For Referral No information Plan Of Treatment Date Type Action Status Appointment NyaItzel BOOKED History Of Present Illness Encounter Date Complaint History Of Present Illness No information Functional Status Date Functional Assessment No information Medications Administered Medication Instructions Dosage Effective Dates (start - stop) Status Comments No information Instructions Date Instruction Additional Information No information Assessments Type Assessment Date No information Goals Health Concern Goal Type Priority Status Date No information Medical Equipment Description Device [place] Device Identifier Effective Dates (start - stop ) Status No information Mental Status Date Cognitive Assessment No information Health Concerns Observation Date No information Concern Status Date No information
[2019-11-07 10:11] VITALS: BP 144/95
--- NOTE | 2019-11-07 10:28 | UC ---
Throat Pain/Nasal Reymundo HPI - HPI Summary HPI Summary: 39 yo female presents with URI symptoms. She tells me that over the last 10 days she has had sinus pain/pressure/congestion, headache, sore throat, and intermittent productive cough. Over the last 2-3 days her cough has gotten worse and she has noticed wheezing at night. She has been taking sudafed OTC with little relief. She has felt feverish, but has not taken her temperature. She denies SOB, chest pain, n/v. She does not smoke. - History of Current Complaint Chief Complaint: UCGeneralIllness Stated Complaint: CONGESTION,COLD SYMPTOMS Time Seen by Provider: 11/07/19 10:28 Hx Obtained From: Patient Hx Last Menstrual Period: oct 29 Onset/Duration: Gradual Onset Severity: Mild Pain Intensity: 4 Pain Scale Used: 0-10 Numeric - Allergies/Home Medications Allergies/Adverse Reactions: Allergies Allergy/AdvReac Type Severity Reaction Status Date / Time amoxicillin Allergy Severe Hives Verified 11/07/19 10:11 clavulanic acid Allergy Severe Hives Verified 11/07/19 10:11 [From Augmentin] shellfish derived Allergy Severe anaphylaxis Verified 11/07/19 10:11 Sulfa (Sulfonamide Allergy Severe Hives, Verified 11/07/19 10:11 Antibiotics) difficulty breathing Home Medications: Home Medications ALPRAZolam [Alprazolam] 0.25 mg PO DAILY WITH MEAL 11/07/19 [History Confirmed 11/07/19] Bupropion XL* [Wellbutrin XL *] 150 mg PO DAILY 11/07/19 [History Confirmed ] Desloratadine [Desloratadine Odt] 2.5 mg PO DAILY WITH MEAL 11/07/19 [History Confirmed 11/07/19] Hydrocodone/Acetaminophen [Hydrocodone Bitartrate/AC 2.5-325 mg] 1 tab PO BID [History Confirmed 11/07/19] Phentermine HCl [Adipex-P] 37.5 mg PO DAILY WITH MEAL 11/07/19 [History Confirmed 11/07/19] predniSONE 10 mg TAB [Deltasone 10 MG TAB*] 10 mg PO DAILY 11/07/19 [History Confirmed 11/07/19] PMH/Surg Hx/FS Hx/Imm Hx Psychological History: Anxiety, Depression - Surgical History Surgical History: Yes Surgery Procedure, Year, and Place: tonsillectomy, wisdom teeth removal, surgical removal of a glass foreign body from foot - Family History Known Family History: Positive: Other - : liver and renal failure, nonalcoholic cirrhosis, abdominal aneurism, - Social History Lives: With Family Alcohol Use: Rare Substance Use Type: Marijuana Substance Use Comment - Amount & Last Used: medical Smoking Status (MU): Former Smoker Amount Used/How Often: 1 cig/day Have You Smoked in the Last Year: Yes - Immunization History Most Recent Influenza Vaccination: None Most Recent Tetanus Shot: Unk Most Recent Pneumonia Vaccination: None Review of Systems All Other Systems Reviewed And Are Negative: No Constitutional: Positive: Fatigue Skin: Positive: Negative Eyes: Positive: Negative ENT: Positive: Sore Throat, Nasal Discharge, Sinus Congestion, Sinus Pain/ Tenderness Respiratory: Positive: Cough Cardiovascular: Positive: Negative Gastrointestinal: Positive: Negative Neurological/Mental Status: Positive: Negative Psychological: Positive: Negative Physical Exam - Summary Physical Exam Summary: GENERAL: NAD. WDWN. No pain distress. SKIN: No rashes, sores, lesions, or open wounds. HEENT: Head: AT/NC Eyes: EOM intact. Conjunctiva clear without inflammation or discharge. Ears: Hearing grossly normal. TMs intact, no bulging, erythema, or edema. Nose: Nasal mucosa mildly swollen and erythematous with yellow/ clear discharge. TTP maxillary and frontal sinus. Positive post nasal drip Throat: Posterior oropharynx without exudates, erythema, or tonsillar enlargement. Uvula midline. NECK: Supple. Nontender. No lymphadenopathy. CHEST: CTAB. No r/r/w. No accessory muscle use. Breathing comfortably and in no distress. CV: RRR. Pulses intact. NEURO: Alert. PSYCH: Age appropriate behavior. Triage Information Reviewed: Yes Vital Signs: Initial Vital Signs Temp 96.8 F 11/07/19 10:06 Pulse 90 11/07/19 10:06 Resp 18 11/07/19 10:06 BP 144/95 11/07/19 10:06 Pulse Ox 100 11/07/19 10:06 Vital Signs Reviewed: Yes Throat Pain/Nasal Course/Dx - Course Course Of Treatment: Sinusitis - Differential Dx/Diagnosis Provider Diagnosis: Sinusitis Discharge ED - Sign-Out/Discharge Documenting (check all that apply): Patient Departure All imaging exams completed and their final reports reviewed: No Studies - Discharge Plan Condition: Stable Disposition: HOME Prescriptions: Albuterol HFA INHALER* [Ventolin HFA Inhaler*] 1 - 2 puff INH Q6H PRN #1 mdi PRN Reason: Sob/Wheezing Azithromycin TAB* [Zithromax TAB (Z-MAIRA) 250 mg #6 tabs] 2 tab PO .TODAY, THEN 1 DAILY #1 maira Fluticasone NASAL SPRAY 50MCG* [Flonase NASAL SPRAY 50MCG*] 2 spray BOTH NARES DAILY #1 btl Patient Education Materials: Sinusitis (ED) Referrals: Nitesh CAMACHO,Fernando [Primary Care Provider] - Additional Instructions: If you develop a fever, shortness of breath, chest pain, new or worsening symptoms - please call your PCP or go to the ED immediately. Your blood pressure was high at todays visit. Please see your primary provider within 4 weeks for recheck and re-evaluation. - Billing Disposition and Condition Condition: STABLE Disposition: Home - Attestation Statements Provider Attestation: I was available for consult. This patient was seen by the ALEXUS. The patient was not presented to, seen by, or examined by me. -Asiya
== END 2019-11-07 10:37 | disposition home or self-care (01) ==
LOC: UCEAST 09:50
DX: J32.9 Chronic sinusitis, unspecified (principal); F41.9 Anxiety disorder, unspecified; F32.9 Major depressive disorder, single episode, unspecified; Z88.0 Allergy status to penicillin; Z88.2 Allergy status to sulfonamides; Z91.013 Allergy to seafood; Z79.899 Other long term (current) drug therapy; Z87.891 Personal history of nicotine dependence
CPT/HCPCS: 99212; G0463